=== PATIENT | female | born 1935 | race African-American/Black ===

== ENCOUNTER 2017-04-27 06:52 | Inpatient (IN) | payer MEDICARE ==
[2017-04-27] MEDS ORDERED: Albuterol/Ipratropium NEB.SOL* Albuterol 2.5 MG/Ipratropium 0.5 MG 3 ML INH ONE (07:30)
[2017-04-27 08:37] LABS: Red Blood Count 3.06 10^6/ul (4.0-5.4); White Blood Count 6.2 10^3/ul (3.5-10.8)
[2017-04-27 08:41] LABS: Hematocrit 22 % (35-47); Hemoglobin 6.7 g/dl (12.0-16.0); Mean Corpuscular HGB Conc 31 g/dl (31-36); Mean Corpuscular Hemoglobin 22 pg (27-31); Mean Corpuscular Volume 71 fL (80-97); Mean Platelet Volume 10 um3 (7.4-10.4); Red Cell Distribution Width 17 % (10.5-15)
[2017-04-27 08:42] LABS: Comments Flag Yes
[2017-04-27 08:44] LABS: Add Diff/Slide Review? Slide Review Added
[2017-04-27 08:56] LABS: Albumin 3.3 g/dL (3.2-5.2); BUN/Creatinine Ratio 14.2 (8-20); C Reactive Protein 29.13 mg/L (< 5.00); Calcium 9.1 mg/dL (8.6-10.3); EGFR African American 63.7 (>60); EGFR Non-African American 49.5 (>60); Globulin 3.4 g/dL (2-4); Total Bilirubin 0.5 mg/dL (0.2-1.0); Total Protein 6.7 g/dL (6.4-8.9)
[2017-04-27 08:57] LABS: Troponin I 0.47 ng/mL (<0.04)
--- NOTE | 2017-04-27 09:19 | RAD ---
HISTORY: Productive cough COMPARISONS: None VIEWS: 4: Frontal dual-energy and lateral views of the chest. FINDINGS: CARDIOMEDIASTINAL SILHOUETTE: The cardiomediastinal silhouette is normal. DARIEN: The darien are normal. PLEURA: The costophrenic angles are sharp. No pleural abnormalities are noted. LUNG PARENCHYMA: There is mild patchy linear opacification of the left lung base. ABDOMEN: The upper abdomen is clear. There is no subphrenic gas. BONES AND SOFT TISSUES: No bone or soft tissue abnormalities are noted. OTHER: None. IMPRESSION: PATCHY AIRSPACE DISEASE OF THE LEFT LUNG BASE. RECOMMEND FOLLOW-UP UNTIL RESOLUTION TO EXCLUDE UNDERLYING PULMONARY PARENCHYMAL PATHOLOGY.
[2017-04-27 09:25] LABS: Urine Bilirubin Negative (Negative); Urine Glucose Negative (Negative); Urine Nitrite Negative (Negative)
[2017-04-27 09:35] LABS: Microcytosis 1+; Polychromasia 1+
[2017-04-27] MEDS ORDERED: Pantoprazole IV* 40 MG IV ONE (10:20)
[2017-04-27] MEDS ORDERED: Levofloxacin 750 MG IVPREMIX(* 750 MG/150 ML BAG IVPB ONE (10:25)
[2017-04-27] MEDS: Pantoprazole IV* 80 MG in NS 0.9% 250 ML* 250 ML IV SCH ×2 (10:57→21:18)
--- NOTE | 2017-04-27 12:20 | ED ---
Amadeo Deal Angela, scribed for Nabeel Arias MD on 04/27/17 at 0722 . Respiratory - HPI Summary HPI Summary: This pt is a 81 y/o female accompanied by her presenting to [facility] [place]/o cough for a couple of days. Pt reports a burning sensation to her chest when coughing. Cough is aggravated when laying supine. She states she has a productive cough with a small amount of sputum. She denies fever, rhinorrhea, nausea, vomiting. Her cough is aggravated at night. PMHx includes coronary artery disease - angioplasty, HTN, rheumatoid arthritis. - History of Current Complaint Chief Complaint: EDUpperRespComplaint Stated Complaint: COUGH/CHEST BURNING Time Seen by Provider: 04/27/17 07:15 Hx Obtained From: Patient Onset/Duration: Lasting Days, Still Present Timing: Constant Pain Intensity: 9 Character: Wheezing, Cough (Productive) Sputum Amount: Small Aggravating Factor(s): Recumbent Position Associated Signs and Symptoms: Wheezing - Allergy/Home Medications Allergies/Adverse Reactions: Allergies Allergy/AdvReac Type Severity Reaction Status Date / Time Penicillin G Allergy Severe Hives Verified 04/27/17 06:57 Home Medications: Home Medications Aspirin EC Low Dose* [Ecotrin EC Low Dose 81 MG*] 81 mg PO DAILY 04/27/17 [ History Confirmed 04/27/17] Cyanocobalamin TAB* [Vitamin B12 TAB*] 500 mcg PO DAILY 04/27/17 [History Confirmed 04/27/17] Fexofenadine (NF) [Ely 180 (NF)] 180 mg PO DAILY 04/27/17 [History Confirmed 04/27/17] Multivitamins/Minerals TAB* [Theragran/minerals TAB*] 1 tab PO DAILY 04/27/17 [ History Confirmed 04/27/17] Nitroglycerin 0.2 MG/HR PATCH* [Nitroglycerin 5 MG PATCH*] 1 patch TRANSDERM DAILY 04/27/17 [History Confirmed 04/27/17] Nitroglycerin TAB 0.4 MG* 0.4 mg SL Q5M PRN 04/27/17 [History Confirmed 04/27/17 ] [place]-3 Fatty Acids (Nf) [Fish Oil (NF)] 1,000 mg PO DAILY 04/27/17 [History Confirmed 04/27/17] amLODIPine TAB* [Norvasc 5 mg TAB*] 10 mg PO DAILY 04/27/17 [History Confirmed 04/27/17] PMH/Surg Hx/FS Hx/Imm Hx Endocrine/Hematology History: Denies: Hx Diabetes Cardiovascular History: Reports: Hx Coronary Artery Disease - 192 ANGIOPLASTY, Hx Hypertension Musculoskeletal History: Reports: Hx Arthritis - KNEES, HANDS, LOW BACK, Hx Rheumatoid Arthritis Denies: Hx Osteoporosis Sensory History: Reports: Hx Contacts or Glasses - GLASSES Opthamlomology History: Reports: Hx Contacts or Glasses - GLASSES - Cancer History Hx Chemotherapy: No Hx Radiation Therapy: No - Surgical History Surgery Procedure, Year, and Place: 1991 CORONARY ANGIOPLASTY [place]. 1963 ABD TUMOR ? [place], [place]. 1971 HYSTERECTOMY [facility] Hx Anesthesia Reactions: No Infectious Disease History: No Infectious Disease History: Denies: Traveled Outside the [place] in Last 30 Days - Family History Known Family History: Positive: Diabetes - type 2, father, Other - Father: CA and asthma - Social History Alcohol Use: None Substance Use Type: Reports: None Smoking Status (MU): Former Smoker Amount Used/How Often: FEW CIGS. /WEEK MAYBE 10 YRS Have You Smoked in the Last Year: No Review of Systems Negative: Fever, Chills Negative: Other - rhinorrhea Positive: Other - chest burning secondary to cough Positive: Cough Negative: Vomiting, Nausea All Other Systems Reviewed And Are Negative: Yes Physical Exam - Summary Physical Exam Summary: VITAL SIGNS: Reviewed. GENERAL: Patient is a well-developed and nourished female who is lying comfortable in the stretcher. Patient is not in any acute respiratory distress. HEAD AND FACE: No signs of trauma. No ecchymosis, hematomas or skull depressions. No sinus tenderness. EYES: PERRLA, EOMI x 2, No injected conjunctiva, no nystagmus. EARS: Hearing grossly intact. Ear canals and tympanic membranes are within normal limits. MOUTH: Oropharynx within normal limits. NECK: Supple, trachea is midline, no adenopathy, no JVD, no carotid bruit, no c- spine tenderness, neck with full ROM. CHEST: Symmetric, no tenderness at palpation LUNGS: Pt has diffuse wheezing. CVS: Regular rate and rhythm, S1 and S2 present, no murmurs or gallops appreciated. ABDOMEN: Soft, non-tender. No signs of distention. No rebound no guarding, and no masses palpated. Bowel sounds are normal. 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 Pt has melena. EXTREMITIES: FROM in all major joints, no edema, no cyanosis or clubbing. NEURO: Alert and oriented x 3. No acute neurological deficits. Speech is normal and follows commands. SKIN: Dry and warm. Triage Information Reviewed: Yes Vital Signs On Initial Exam: Initial Vitals Temp Pulse Resp BP Pulse Ox 97.7 F 83 20 125/50 95 04/27/17 06:54 04/27/17 06:54 04/27/17 06:54 04/27/17 06:54 04/27/17 06:54 Vital Signs Reviewed: Yes - Phylicia Coma Scale Coma Scale Total: 15 Diagnostics - Vital Signs Vital Signs Temp Pulse Resp BP Pulse Ox 04/27/17 07:10 24 97 04/27/17 07:09 139/50 04/27/17 06:54 97.7 F 83 20 125/50 95 - Laboratory Lab Results: Lab Results 04/27/17 04/27/17 04/27/17 Range/Units 08:15 08:15 08:15 WBC 6.2 (3.5-10.8) 10^3/ul RBC 3.06 L (4.0-5.4) 10^6/ul Hgb 6.7 L (12.0-16.0) g/dl Hct 22 L (35-47) % MCV 71 L (80-97) fL MCH 22 L (27-31) pg MCHC 31 (31-36) g/dl RDW 17 H (10.5-15) % Plt Count 160 (150-450) 10^3/ul MPV 10 (7.4-10.4) um3 Neut % (Auto) 74.8 (38-83) % Lymph % (Auto) 10.9 L (25-47) % [place] % (Auto) 12.6 H (1-9) % Eos % (Auto) 0.3 (0-6) % Baso % (Auto) 1.4 (0-2) % Absolute Neuts (auto) 4.6 (1.5-7.7) 10^3/ul Absolute Lymphs (auto) 0.7 L (1.0-4.8) 10^3/ul Absolute Monos (auto) 0.8 (0-0.8) 10^3/ul Absolute Eos (auto) 0 (0-0.6) 10^3/ul Absolute Basos (auto) 0.1 (0-0.2) 10^3/ul Absolute Nucleated RBC 0 10^3/ul Nucleated RBC % 0 Normal RBC Morphology Not Reportable Polychromasia 1+ Microcytosis 1+ Sodium 140 (133-145) mmol/L Potassium 4.0 (3.5-5.0) mmol/L Chloride 107 (101-111) mmol/L Carbon Dioxide 26 (22-32) mmol/L Anion Gap 7 (2-11) mmol/L BUN 15 (6-24) mg/dL Creatinine 1.06 H (0.51-0.95) mg/dL Est GFR ( Amer) 63.7 (>60) Est GFR (Non-Af Amer) 49.5 (>60) BUN/Creatinine Ratio 14.2 (8-20) Glucose 119 H (70-100) mg/dL Calcium 9.1 (8.6-10.3) mg/dL Total Bilirubin 0.50 (0.2-1.0) mg/dL AST 25 (13-39) U/L ALT 14 (7-52) U/L Alkaline Phosphatase 64 (34-104) U/L Troponin I 0.47 H* (<0.04) ng/mL C-Reactive Protein 29.13 H (< 5.00) mg/L B-Natriuretic Peptide 538 H ( - 100) pg/mL Total Protein 6.7 (6.4-8.9) g/dL Albumin 3.3 (3.2-5.2) g/dL Globulin 3.4 (2-4) g/dL Albumin/Globulin Ratio 1.0 (1-3) Urine Color Urine Appearance Urine pH (5-9) Ur Specific [place] (1.010-1.030) Urine Protein (Negative) Urine Ketones (Negative) Urine Blood (Negative) Urine Nitrate (Negative) Urine Bilirubin (Negative) Urine Urobilinogen (Negative) Ur Leukocyte Esterase (Negative) Urine Glucose (Negative) Blood Type Antibody Screen Crossmatch 04/27/17 04/27/17 Range/Units 08:15 08:55 WBC (3.5-10.8) 10^3/ul RBC (4.0-5.4) 10^6/ul Hgb (12.0-16.0) g/dl Hct (35-47) % MCV (80-97) fL MCH (27-31) pg MCHC (31-36) g/dl RDW (10.5-15) % Plt Count (150-450) 10^3/ul MPV (7.4-10.4) um3 Neut % (Auto) (38-83) % Lymph % (Auto) (25-47) % [place] % (Auto) (1-9) % Eos % (Auto) (0-6) % Baso % (Auto) (0-2) % Absolute Neuts (auto) (1.5-7.7) 10^3/ul Absolute Lymphs (auto) (1.0-4.8) 10^3/ul Absolute Monos (auto) (0-0.8) 10^3/ul Absolute Eos (auto) (0-0.6) 10^3/ul Absolute Basos (auto) (0-0.2) 10^3/ul Absolute Nucleated RBC 10^3/ul Nucleated RBC % Normal RBC Morphology Polychromasia Microcytosis Sodium (133-145) mmol/L Potassium (3.5-5.0) mmol/L Chloride (101-111) mmol/L Carbon Dioxide (22-32) mmol/L Anion Gap (2-11) mmol/L BUN (6-24) mg/dL Creatinine (0.51-0.95) mg/dL Est GFR ( Amer) (>60) Est GFR (Non-Af Amer) (>60) BUN/Creatinine Ratio (8-20) Glucose (70-100) mg/dL Calcium (8.6-10.3) mg/dL Total Bilirubin (0.2-1.0) mg/dL AST (13-39) U/L ALT (7-52) U/L Alkaline Phosphatase (34-104) U/L Troponin I (<0.04) ng/mL C-Reactive Protein (< 5.00) mg/L B-Natriuretic Peptide ( - 100) pg/mL Total Protein (6.4-8.9) g/dL Albumin (3.2-5.2) g/dL Globulin (2-4) g/dL Albumin/Globulin Ratio (1-3) Urine Color Straw Urine Appearance Clear Urine pH 6.0 (5-9) Ur Specific [place] 1.005 L (1.010-1.030) Urine Protein Negative (Negative) Urine Ketones Negative (Negative) Urine Blood Negative (Negative) Urine Nitrate Negative (Negative) Urine Bilirubin Negative (Negative) Urine Urobilinogen Negative (Negative) Ur Leukocyte Esterase Negative (Negative) Urine Glucose Negative (Negative) Blood Type O Positive Antibody Screen Negative Crossmatch See Detail Result Diagrams: 04/27/17 08:15 04/27/17 08:15 Lab Statement: Any lab studies that have been ordered have been reviewed, and results considered in the medical decision making process. - Radiology Chest XR Xray Interpretation: Positive (See Comments) - IMPRESSION: Patchy airspace disease of the left lung base. Recommend follow-up until resolution to exclude underlying pulmonary parenchymal pathology. ED physician has reviewed this radiology report and agrees. Radiology Interpretation Completed By: Radiologist - EKG 0743 Cardiac Rate: NL - 70 bpm EKG Rhythm: Sinus Rhythm EKG Interpretation: No ST elevation. Normal axis Disposition - Course Assessment/Plan: This pt is a 81 y/o female accompanied by her presenting to [facility] c/o cough for a couple of days. Pt reports a burning sensation to her chest when coughing. Cough is aggravated when laying supine. She states she has a productive cough with a small amount of sputum. She denies fever, rhinorrhea, nausea, vomiting. Her cough is aggravated at night. PMHx includes coronary artery disease - angioplasty, HTN, rheumatoid arthritis. Test results without any significant abnormalities except for hemoglobin of 6.7, hematocrit of 22, MCV of 71, creatinine of 1.06, troponin of 0.47, BNP of 538. Urinalysis is negative for UTI. Chest XR shows a patchy airspace disease of the left lung base. Since the pt is having a productive cough, I will place pt in Levaquin to cover for pneumonia. I discussed the case with Dr. Romano who will consult with the pt for a GI bleed. Pt was positive for occult blood and rectal exam. I discussed the case with Dr. Martino who accepted the pt for admission. Pt is hemodynamically stable, alert and oriented x3. - Diagnoses Provider Diagnoses: GI bleed, Symptomatic anemia, increased troponin, rule out ACS - Physician Notifications Discussed Care Of Patient With: Aravind Romano Time Discussed With Above Provider: 10:01 Instructed by Provider To: Other - I discussed the pt's case with Dr. Romano, film producer. He will consult with the pt. [10:25] I discussed the case with Dr. Martino, who has accepted the pt for admission. - Critical Care Time Critical Care Time: 30-74 min Discharge - Discharge Plan Condition: Stable Disposition: ADMITTED TO [facility] The documentation as recorded by the Amadeo tomlinson Angela accurately reflects the service I personally performed and the decisions made by me, Nabeel Arias MD.
[2017-04-27] MEDS: NS 0.9% 1000 ML* 1,000 ML IV SCH (13:20)
[2017-04-27] MEDS: Albuterol/Ipratropium NEB.SOL* Albuterol 2.5 MG/Ipratropium 0.5 MG 3 ML INH SCH ×3 (13:47→23:20)
[2017-04-27] MEDS ORDERED: Albuterol/Ipratropium NEB.SOL* Albuterol 2.5 MG/Ipratropium 0.5 MG 3 ML INH SCH (14:00)
--- NOTE | 2017-04-27 14:09 | HP ---
CC: Dr. Maxwell; Dr. Brown * HISTORY AND PHYSICAL: DATE OF ADMISSION: 04/27/17 PRIMARY CARE PROVIDER: Dr. Maxwell. DELIVERY CONSULTANT: Dr. Brown. ATTENDING PHYSICIAN: Dr. Harriet Fang * (report dictated by Jenna Marie NP). CHIEF COMPLAINT: Shortness of breath. HISTORY OF PRESENT ILLNESS: This patient is an 81-year-old female with past medical history significant for coronary artery disease, severe aortic stenosis , hypertension, hyperlipidemia, as well as past history of gastric cancer, who presents to the emergency room today with complaint of shortness of breath. The patient states starting on this past Wednesday, she started to have significant difficulty breathing both at rest and walking around. The patient denies any fever, but reported dry cough. The patient also stated that she had chest pain that was worse when she lie flat. She said drink of water helped her feel better. She described the chest pain as a burning. In addition, she felt she had trouble breathing lying flat. The patient reports black coffee- ground stools for unknown length of time. The patient states she takes iron and has been on iron for quite some time and states that she knows her stools are darker with iron. Two years ago, the patient had a partial resection of her stomach for gastric cancer done up in [place]. The patient reports almost no appetite and denies any significant weight loss in the past month. In the emergency room, the patient was found to have a hemoglobin of 6.7 down from last hemoglobin in our system from October 2014 of 8.3. In addition, the patient had a troponin of 0.47 and a BNP of 538. Her stool occult blood was positive and certified medical coding specialist was contacted for consultation. The patient was given a bolus of IV Protonix and placed on a Protonix drip. In addition, 2 units of blood were ordered and the patient has already received one unit. The patient will be admitted to the telemetry floor with the diagnosis of upper GI bleed and indeterminate troponin. PAST MEDICAL HISTORY: Coronary artery disease; hypertension; hyperlipidemia; severe aortic stenosis, last echocardiogram 2015; gastric cancer, status post resection 2 years ago. MEDICATIONS: Home medications include: 1. Fish oil 1000 mg oral daily. 2. Vitamin B12 500 mcg daily. 3. Norvasc 10 mg oral daily. 4. Nitro 0.2 mg/hour patch one patch transdermal daily. 5. Multiple vitamin one tablet oral daily. 6. Iron unknown dose daily. 7. Ely 180 mg oral daily. 8. Aspirin 81 mg oral daily. 9. Hydrochlorothiazide 25 mg oral daily. 10. Vitamin D 1000 units oral daily. 11. Nitro 0.4 mg sublingual every 5 minutes as needed. 12. Pravachol 40 mg oral daily. ALLERGIES: PENICILLIN. FAMILY HISTORY: The patient does not remember how her parents . SOCIAL HISTORY: Tobacco: The patient states she quit both drinking and smoking back in 1974. The patient is retired from [employer] where she worked for 26 years. Her cousin, Bam Hartman will be the surrogate decision maker in the event the patient cannot make decisions for herself. REVIEW OF SYSTEMS: I performed a 14-point review of systems; all the pertinent positives and negatives are mentioned in the history of present illness. The remaining review of systems is negative. PHYSICAL EXAMINATION APPEARANCE: The patient is alert, pleasant and appeared to be in no apparent distress. VITAL SIGNS: Temperature 99.8, heart rate 82, respiratory rate 18, blood pressure 144/59, oxygen saturation 100% on 2 L nasal cannula. HEAD, EYES, EARS, NOSE AND THROAT: Normocephalic/atraumatic. Pupils are equal and reactive to light. Extraocular movements were intact. NECK: Neck was supple. There is no lymphadenopathy noted. RESPIRATORY: There was no accessory muscle use. Lungs were clear at the bases. There was expiratory wheezing throughout. CARDIAC: S1 and S2 were crisp. There was 3/6 systolic murmur heard at the right sternal border. Rate and rhythm were regular. ABDOMEN: Soft, nontender, nondistended. There are bowel sounds x4. MUSCULOSKELETAL: There is no clubbing or cyanosis noted. The patient exhibited equal strength in all extremities. NEURO: Cranial nerves II through XII were intact. The patient moves all extremities. Lower extremities were intact to light touch. PSYCH: The patient is alert and oriented x3. SKIN: There were no rashes or abnormalities seen. DIAGNOSTIC STUDIES/LAB DATA: Sodium 140, potassium 4, chloride 107, CO2 26, BUN 15, creatinine 1, glucose 119, calcium 9.1. Liver function tests within normal limits. Troponin 0.47. CRP 29.13. BNP 538. Albumin 3.3. White blood cell count 6.2, hemoglobin 6.7, hematocrit 22, MCV 71, platelet count 160. Urinalysis is negative. Chest x-ray shows patchy airspace disease of the left lower base. EKG shows sinus rhythm with a rate of 70. IMPRESSION: This is an 81-year-old female with past medical history significant for severe aortic stenosis and gastric cancer, status post partial resection, who presents to the emergency room with complaint of shortness of breath, found to have a suspected lower GI bleed and significant anemia as well as elevated troponin. ASSESSMENT AND PLAN: 1. Upper GI bleed. The patient was given a bolus of Protonix and started on a Protonix drip in the emergency room. She has already been transfused one unit of blood and we will transfuse an additional unit. After this, hemoglobin will be rechecked and trended q.6 hours. Consultation has been placed to Dr. Romano from Gastroenterology and plan is most likely for an upper endoscopy. Aspirin will be held and antihypertensives will be held. 2. Dyspnea at rest and on exertion. The patient's shortness of breath is likely from the symptomatic anemia from her upper GI bleed. It is also likely that because of her severe aortic stenosis, she has lack of forward flow, although she does not have crackles on exam. Additionally, she has some wheezing and may have a component of reactive airway disease. In addition to transfusing blood, we may give Lasix later on depending upon her fluid and respiratory status. She will have standing DuoNebs for the time being to help with her wheezing. 3. Elevated troponin. The patient's troponin is likely due to demand ischemia from anemia in the setting severe aortic stenosis. She does have a history of coronary artery disease, but has no changes on EKG. The troponin will be trended. I will not order an echocardiogram as she had one last year that showed severe aortic stenosis and according to the notes from her truck chauffeur at that time, she did not wish for any surgical intervention. I do not feel that an echocardiogram will change the care of the patient at this time. For her coronary artery disease, once the GI bleed has resolved and she can eat, we will restart her statin. For the time being, her aspirin will be held due to the GI bleed. Nitro patch will continue. Likely, the chest pain she is experiencing is from GI discomfort rather than cardiac. 4. Hypertension. Amlodipine will be held while she is receiving blood. 5. Hyperlipidemia. Statin will be held until she can take p.o. again. 6. Fluids, electrolytes, and nutrition. The patient is n.p.o. with IV fluids until seen and evaluated by the certified medical coding specialist. 7. DVT prophylaxis. Chemical prophylaxis is contraindicated due to GI bleed. The patient will have SCDs. 8. Code status is full. TIME SPENT: Time for this admission was 60 minutes, and 35 minutes was spent with the patient discussing medications, past medical history, and events leading up to her arrival in the emergency room. Reviewed by JENNA MARIE NP 04/27/2017 2100 [id number] #: [id number] LIZ
[2017-04-27 18:13] LABS: Hematocrit 29 % (35-47); Hemoglobin 9.2 g/dl (12.0-16.0)
[2017-04-27 18:20] LABS: Comments Flag Yes
--- NOTE | 2017-04-27 20:49 | CONS ---
GASTROENTEROLOGY CONSULT: DATE: 04/27/17 CONSULTING PHYSICIANS: Bonifacio Maxwell MD, Harriet Fang MD. 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 pylori positive at that time). HISTORY: This 81-year-old woman had anemia. An upper endoscopy by Dr. Rodriguez showed an antral cancer. She had surgery in [place] in January 2015. It is not clear whether she ever had the H. pylori eradicated. Since then, she has not had any upper endoscopy. She takes baby aspirin but no NSAIDs, although 3 years ago when she had breast surgery, she was listed as being on etodolac 400 mg twice a day. In the last 2 years, she has been on iron and says her stools are black on account of that going once a day without the need for any laxatives. She denies any tarry stool. History that had been passed on from ER staff or others had been variable on this point. She has had a colonoscopy in the remote past and that report is not available. Dr. Maxwell was called and the patient was seen in mid December, at which time her hemoglobin was 11.6 and MCV 78. She had received iron infusions twice a year ago. She was seen at [facility] on 04/08/17 and the only plan at that time was to arrange for a followup CT scan. That message is per report, as the actual consult is not available. PAST MEDICAL HISTORY: 1. Substantial obesity. 2. Aortic stenosis - she has expressed the wish not to have surgery. 3. Coronary disease - angioplasty in 1991 at [facility]. 4. Osteoarthritis. 5. Hypertension. 6. Total abdominal hysterectomy in 1971. 7. Incidental appendectomy. 8. Breast lumpectomy, November 2003. SOCIAL HISTORY: She lives alone. She is . 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 REVIEW OF SYSTEMS: No history of hepatitis, jaundice, gallstones, pancreatitis , alcohol abuse, seizures, CVA, fainting. She is followed by Dr. Brown for . No history of recent fracture. No history of psoriasis or other other chronic dermatologic problems. EXAM: She is an elderly woman, substantially overweight, wearing a wig, in no overt distress. She is a little bit short of breath, lying at 30 degrees. HEENT exam shows no icterus. She has no adenopathy. There is a coarse aortic stenotic murmur. Her abdomen shows an upper midline scar and a lower midline separate scar that is remote. Bowel sounds are normal. The abdomen is soft and obesity limits it. Rectal deferred. Extremities show no edema. Neurological is nonfocal with normal cranial nerves and movement of all 4 extremities. LABS: At presentation, hemoglobin 6.7, hematocrit 22, MCV 71, platelets 160, 000. IMPRESSION: This 81-year-old woman 2 years out from antral resection and on chronic iron replacement presents with severe iron-deficiency anemia. Whether she could have some occult unrevealed NSAID use and have an upper GI source versus AVMs related to her aortic stenosis is unclear. Upper endoscopy will commence first. [id number]/CPS #: [id number] LIZ
[2017-04-27 21:32] LABS: Comments Flag Yes; Hematocrit 29 % (35-47); Hemoglobin 8.9 g/dl (12.0-16.0)
[2017-04-28] MEDS: Albuterol/Ipratropium NEB.SOL* Albuterol 2.5 MG/Ipratropium 0.5 MG 3 ML INH SCH ×6 (03:43→23:33)
[2017-04-28 05:25] LABS: Calcium 8.7 mg/dL (8.6-10.3); EGFR African American 90.7 (>60); EGFR Non-African American 70.5 (>60); Potassium 3.5 mmol/L (3.5-5.0)
[2017-04-28 05:28] LABS: Hematocrit 28 % (35-47); Hemoglobin 8.6 g/dl (12.0-16.0); Mean Corpuscular HGB Conc 31 g/dl (31-36); Mean Corpuscular Hemoglobin 23 pg (27-31); Mean Platelet Volume 10 um3 (7.4-10.4); Red Blood Count 3.79 10^6/ul (4.0-5.4); Red Cell Distribution Width 20 % (10.5-15); White Blood Count 10.8 10^3/ul (3.5-10.8)
[2017-04-28 05:29] LABS: Comments Flag Yes; Mean Corpuscular Volume 74 fL (80-97)
[2017-04-28] MEDS: Pantoprazole IV* 80 MG in NS 0.9% 250 ML* 250 ML IV SCH (07:47)
[2017-04-28] MEDS ORDERED: Pantoprazole IV* 80 MG in NS 0.9% 250 ML* 250 ML IV SCH (08:00)
[2017-04-28] MEDS: Nitroglycerin 0.2 MG/HR PATCH* (5 MG) TRANSDERM SCH (08:10)
[2017-04-28] MEDS: NS 0.9% 1000 ML* 1,000 ML IV SCH (08:10)
[2017-04-28] MEDS ORDERED: Furosemide IV* 10 MG/ML 2 ML VIAL (20 MG) IV ONE (08:45)
[2017-04-28] MEDS: KCL 10 MEQ/50 ML IVPREMIX* 10 MEQ/50 ML BAG IV SCH ×3 (09:16→13:49)
--- NOTE | 2017-04-28 10:18 | RAD ---
HISTORY: Hypoxia COMPARISONS: April 27, 2017 VIEWS: 1: frontal portable view of the chest at 9:55 AM FINDINGS: LINES AND TUBES: None. CARDIOMEDIASTINAL SILHOUETTE: The cardiomediastinal silhouette is normal for portable technique. PLEURA: The costophrenic angles are sharp. No pleural abnormalities are noted. LUNG PARENCHYMA: There has been progressive alveolar opacification of the right mid and lower lung field and left lower lung field. ABDOMEN: The upper abdomen is clear. There is no subphrenic gas. BONES AND SOFT TISSUES: Degenerative changes are noted of the spine IMPRESSION: PROGRESSIVE MULTIFOCAL CONSOLIDATION OF THE LUNGS BILATERALLY, GREATER ON THE RIGHT THAN ON THE LEFT
--- NOTE | 2017-04-28 11:47 | PN ---
Subjective Date of Service: 04/28/17 Interval History: Patient seen and examined at bedside. Patient states she feels better but her oxygen levels have increased. Work of breathing looks increased. She denies any chest pain and was able to sleep last night. Able to ambulate to with dyspnea. No dark stools since admission. Family History: Unchanged from Admission Social History: Unchanged from Admission Past Medical History: Unchanged from Admission Objective Active Medications: Albuterol/Ipratropium (Duoneb (Albuterol 2.5 Mg/Ipratropium 0.5 Mg)) 1 neb INH [id number] AWAKE [facility] Pantoprazole Sodium 80 mg/ (Sodium Chloride) 250 mls @ 25 mls/hr IV Q10H [facility] Potassium Chloride (Potassium Chloride 10 Meq/50 Ml Ivpremix*) 10 meq in 50 mls @ 50 mls/hr IV Q1H [facility] Levofloxacin/Dextrose (Levaquin 750 Mg Ivpremix(*)) 750 mg in 150 mls @ 100 mls /hr IVPB Q24H [facility] Nitroglycerin (Nitroglycerin 5 Mg Patch*) 1 patch TRANSDERM DAILY [facility] Vital Signs Temp Pulse Resp BP Pulse Ox 99.4 F 87 16 148/60 98 04/28/17 08:09 04/28/17 11:47 04/28/17 11:47 04/28/17 08:09 04/28/17 11:47 Oxygen Devices in Use Now: Nasal Cannula Appearance: Sitting up in bed, NAD Eyes: No Scleral Icterus, PERRLA Ears/Nose/Mouth/Throat: NL Teeth, Lips, Gums, Mucous Membranes Moist Neck: NL Appearance and Movements; NL JVP Respiratory: Symmetrical Chest Expansion and Respiratory Effort, - - crackles at bases anbd coarse bilaterally. Abdominal: NL Sounds; No Tenderness; No Distention Extremities: No Edema Skin: No Rash or Ulcers Neurological: Alert and Oriented x 3, NL Muscle Strength and Tone Lines/Tubes/Other Access: Clean, Dry and Intact Peripheral IV Nutrition: Taking PO's Result Diagrams: 04/28/17 04:57 04/28/17 04:57 Additional Lab and Data: . Assess/Plan/Problems-Billing Patient is a 81 y/o F w/ PMH significant for severe aortic stenosis, CAD, HTN, HLD, hx of gastric cancer who presented to the ED on 04/27/17 w/ the c/o of worsening SOB found to have symptomatic anemia with an elevated troponin. - Patient Problems (1) Upper GI bleed Comment: Appreciate GI input. Plan for EGD this AM. Hb stable which suggests this is quite chronic. Continue Protonix for now. Recheck H/H after EGD and in AM. (2) Symptomatic anemia Comment: Received 2 units of PRBCs and HB up to 8.6. Possible she woul dbenefit from a Hb in the 9 range. Will give Lasix for now and consider blood based on Hb later today and tomorrow. (3) Pneumonia Comment: CXR this AM shows now R sided consolidation. Sputum shows normal emily. Received dose of Levaquin in ED yesterday. Will start Levaquin now. Send urine for S. pneumo An and Legionella. (4) Elevated troponin Comment: Most likely secondary to demand ischemia from anemia in the setting of , but could also be from pneumonia as now CXR shows right sided consolidation. Although patient has clearly expressed desire for no surgical intervention will check echo given worsening dyspnea. (5) CHF due to valvular disease Comment: Patient has known severe aortic stenosis and does not want surgery. Received IVF and 2 units of blood overnight. Will check echo today given worsening dyspnea to check valve but also look for any other wall motion abnormalities given SOB. Diurese carefully. Consider adding a beta chris to increase preload. (6) HTN (hypertension) Comment: Hold CCB for now. (7) HLD (hyperlipidemia) Comment: Restart statin after EGD (8) DVT prophylaxis Comment: SCDs (9) Full code status Status and Disposition: Inpatient for upper GI bleed and now CHF w/ PNA. VNS set up for discharge when medically stable.
[2017-04-28] MEDS: Levofloxacin 750 MG IVPREMIX(* 750 MG/150 ML BAG IVPB SCH (12:14)
[2017-04-28 12:36] LABS: Hematocrit 32 % (35-47); Hemoglobin 9.7 g/dl (12.0-16.0)
[2017-04-28 12:42] LABS: Comments Flag Yes
--- NOTE | 2017-04-28 13:51 | ECHO ---
Patient: KVNG ALVAREZ [facility] Rec#: [id number] : 1935 Date: 04/28/2017 Age: 81y Height: 157.48 cm / 62.0 in Weight: 76.66 kg / 169.0 lbs Sex: F BSA: 1.78 Room#: 431 Admit Date#: 04/27/2017 Type: Inpatient Referring: Jenna Marie NP Reading: Anneliese Palma MD Stamping Machine Operator: Dalia Salgado,THOMASCS,RDMS CC: Bonifacio Maxwell MD Transthoracic Echocardiogram Indication: AOV disorder, elevated TROP BP: 148/60 HR: 74 Rhythm: NSR Findings History: Severe , CAD, HTN, HLD, gastric cancer Technical Comments: The study quality is good. Completed 1015 Left Ventricle: The left ventricular chamber size is normal. Moderate concentric left ventricular hypertrophy is observed. Global left ventricular wall motion and contractility are within normal limits. There is normal left ventricular systolic function. The estimated ejection fraction is 60-65%. Abnormal left ventricular diastolic filling is observed, consistent with impaired relaxation. Left Atrium: The left atrium is moderate to severely dilated. Right Ventricle: The right ventricle wall thickness is mildly increased. The right ventricular global systolic function is normal. Right Atrium: The right atrial cavity size is normal. Aortic Valve: The aortic valve leaflets are severely thickened with reduced systolic excursion. There is a trace of aortic regurgitation. There is severe aortic stenosis. The mean gradient of the aortic valve is 66 mmHg. The aortic valve area, by peak velocities, is calculated at 0.8 cm2. The highest aortic valve velocity was obtained with the standard probe from the A5C view. Mitral Valve: Moderate mitral annular calcification present. The mitral valve leaflets are mildly thickened. Mitral valve leaflet mobility is moderately restricted. There is moderate mitral regurgitation. There is mild mitral stenosis. Tricuspid Valve: The tricuspid valve leaflets are normal. There is trace tricuspid regurgitation. Pulmonic Valve: The pulmonic valve appears normal. There is a trace pulmonic regurgitation. Pericardium: There is no significant pericardial effusion. A left pleural effusion is present. Aorta: The aortic root appears normal. The aortic arch is not well visualized. Pulmonary Artery: The main pulmonary artery appears normal. Venous: The inferior vena cava appears normal in size. There is a greater than 50% respiratory change in the inferior vena cava dimension. Conclusions Moderate concentric left ventricular hypertrophy is observed. Global left ventricular wall motion and contractility are within normal limits. The estimated ejection fraction is 60-65%. Abnormal left ventricular diastolic filling is observed, consistent with impaired relaxation. The right ventricle wall thickness is mildly increased, systolic function is normal. The aortic valve leaflets are severely thickened with reduced systolic excursion. There is a trace of aortic regurgitation. There is severe aortic stenosis: mean gradient is 66 mmHg CHARISSE is 0.8 cm2, DI is 0.26 (VTI and Vmax). MAC, mitral valve sclerosis with moderate mitral regurgitation and mild mitral stenosis. There is trace tricuspid regurgitation. Compared with prior echo of 04/23/16, mean gradient across the AV was 44 mmHg indicating a further progression in , the degree of MR has increased, MS is stable. Measurements Name Value Normal Range RVIDd (AP) 2D 2.7 cm (0.9 - 2.6) RVDdMajor (2D) 2.6 cm (2.2 - 4.4) RAd ISD 4CH 4.6 cm (3.4 - 4.9) RA (A4C)W 3.9 cm (2.9 - 4.6) IVSd (2D) 1.3 cm (0.6 - 1) LVPWd (2D) 1.4 cm (0.6 - 1) LVIDd (2D) 4.3 cm (3.6 - 5.4) LVIDs (2D) 3.2 cm - LV FS (2D) 26 % (25 - 45) Aortic Annulus 2 cm (1.4 - 2.6) Ao root diameter (2D) 2.6 cm (2.1 - 3.5) Ascending Ao 2.7 cm (2.1 - 3.4) LA dimension (AP) 2D 4.4 cm (2.3 - 3.8) LAd ISD 4CH 5.6 cm (2.9 - 5.3) LA ISD 4CH W 4.5 cm (2.5 - 4.5) Name Value Normal Range LA ESV SP 4CH (A/L) 91.5 ml - LA ESV SP 2CH (A/L) 82.96 ml - LA ESV BP (A/L) 87.23 ml - LA ESV BP (A/L) index 49 ml/m2 - LA ESV SP 4CH (MOD) 83.23 ml - LA ESV SP 2CH (MOD) 76.4 ml - Name Value Normal Range MV E-wave Vmax 1.5 m/sec - MV deceleration time 200 msec - MV A-wave Vmax 1.7 m/sec - MV E:A ratio 0.9 ratio - P. vein S-wave Vmax 1 m/sec - P. vein D-wave Vmax 0.5 m/sec - P. vein S:D Vmax ratio 1.9 ratio - P. vein A-wave duration 100 msec - LV septal e' Vmax 0.05 m/sec - LV lateral e' Vmax 0.08 m/sec - LV E:e' septal ratio 30 ratio - LV E:e' lateral ratio 18 ratio - Name Value Normal Range AV Vmax 4.9 m/sec - AV VTI 123.5 cm - AV peak gradient 96 mmHg - AV mean gradient 66 mmHg - LVOT diameter 2 cm - LVOT Vmax 1.3 m/sec - LVOT VTI 32 cm - LVOT peak gradient 7 mmHg - LVOT mean gradient 3.3 mmHg - DOI (VTI) 0.3 ratio - SV LVOT 96.29 ml - CHARISSE (continuity Vmax) 0.8 cm2 - CHARISSE (continuity VTI) 0.8 cm2 - Name Value Normal Range MV Vmax 2 m/sec - MV VTI 49.2 cm - MV peak gradient 16 mmHg - MV mean gradient 5 mmHg - MV PHT 64 msec - MR Vmax 6.9 m/sec - MR VTI 205 cm - MR volume (PISA) 23 ml - MR flow (PISA) 76 ml/sec - MR ERO 11 cm2 - MR PISA radius 0.6 cm - MR alias Vmax 34 cm/sec - MVA (PHT) 3.4 cm2 - MVA (continuity VTI) 2 cm2 - Name Value Normal Range RAP 8 mmHg - IVC diameter 2 cm - Name Value Normal Range PV Vmax 1.1 m/sec - PV peak gradient 5 mmHg -
[2017-04-28] MEDS ORDERED: amLODIPine TAB* 5 MG PO SCH (16:00)
[2017-04-28] MEDS: amLODIPine TAB* 5 MG PO SCH (16:37)
--- NOTE | 2017-04-28 18:06 | PN ---
Progress Note - Progress Note Date of Service: 04/28/17 - Gastroenterology Note: Patient seen and examined this morning and again in the afternoon. Had increased dyspnea this morning after 2 units for prbcs overnight. Discussed with primary team and was given lasix and some improvement in symptoms but this afternoon patient was still dyspneic. CXR revealed possible B/L infiltrates. No abdominal pain. No nausea/emesis. +appetite. No melena/rectal bleeding. Coughing clear thick sputum this morning. Vital Signs: Temp Pulse Resp BP Pulse Ox 98.6 F 82 16 140/62 100 04/28/17 15:49 04/28/17 15:49 04/28/17 15:49 04/28/17 15:49 04/28/17 15:49 PHYSICAL EXAMINATION: GENERAL: AAOx3, slightly dyspneic in bed. HEENT: anicteric sclera B/L, dry MM. CV: RRR. PULM: Coarse B/L, crackles in lower bases, mild expiratory wheezing in RUL. EXTREMITIES: No edema. NEURO: Grossly intact. Laboratory Results - last 24 hr 04/27/17 04/27/17 04/27/17 17:39 17:39 17:39 WBC RBC Hgb 9.2 L Hct 29 L MCV MCH MCHC RDW Plt Count MPV Neut % (Auto) Lymph % (Auto) Bleck[place] % (Auto) Eos % (Auto) Baso % (Auto) Absolute Neuts (auto) Absolute Lymphs (auto) Absolute Monos (auto) Absolute Eos (auto) Absolute Basos (auto) Absolute Nucleated RBC Nucleated RBC % INR (Anticoag Therapy) 1.06 Sodium Potassium Chloride Carbon Dioxide Anion Gap BUN Creatinine Est GFR ( Amer) Est GFR (Non-Af Amer) BUN/Creatinine Ratio Glucose Calcium Troponin I 0.58 H* B-Natriuretic Peptide 04/27/17 04/27/17 04/28/17 21:03 21:12 04:57 WBC 10.8 RBC 3.79 L Hgb 8.9 L 8.6 L Hct 29 L 28 L MCV 74 L MCH 23 L MCHC 31 RDW 20 H Plt Count 156 MPV 10 Neut % (Auto) 81.8 Lymph % (Auto) 6.3 L Bleckley % (Auto) 11.5 H Eos % (Auto) 0 Baso % (Auto) 0.4 Absolute Neuts (auto) 8.8 H Absolute Lymphs (auto) 0.7 L Absolute Monos (auto) 1.2 H Absolute Eos (auto) 0 Absolute Basos (auto) 0 Absolute Nucleated RBC 0.01 Nucleated RBC % 0.1 INR (Anticoag Therapy) Sodium Potassium Chloride Carbon Dioxide Anion Gap BUN Creatinine Est GFR ( Amer) Est GFR (Non-Af Amer) BUN/Creatinine Ratio Glucose Calcium Troponin I 0.50 H* B-Natriuretic Peptide 04/28/17 04/28/17 04/28/17 04:57 04:57 12:05 WBC RBC Hgb 9.7 L Hct 32 L MCV MCH MCHC RDW Plt Count MPV Neut % (Auto) Lymph % (Auto) Bleck[place] % (Auto) Eos % (Auto) Baso % (Auto) Absolute Neuts (auto) Absolute Lymphs (auto) Absolute Monos (auto) Absolute Eos (auto) Absolute Basos (auto) Absolute Nucleated RBC Nucleated RBC % INR (Anticoag Therapy) Sodium 137 Potassium 3.5 Chloride 107 Carbon Dioxide 25 Anion Gap 5 BUN 7 Creatinine 0.78 Est GFR ( Amer) 90.7 Est GFR (Non-Af Amer) 70.5 BUN/Creatinine Ratio 9.0 Glucose 150 H Calcium 8.7 Troponin I B-Natriuretic Peptide 1326 H A/P 81 yo female with severe and antral adenocarcinoma who presented with acute anemia and BLAKE. Patient's Hgb was 6.7 on admission. She is s/p 2 units of prbcs and hgb is 9.7 now. No episodes of rectal bleeding/melena. Respiratory status worsened overnight. CXR was done this AM revealed right LL infiltrate which may be secondary to CHF from prbcs vs pneumonia. A dose of lasix was given with some improvement in symptoms but still remains dyspneic. EGD with MAC for evaluation of anemia was placed on hold today due to respiratory status. Abx were started as well for possible pneumonia. 1. Acute blood loss anemia ~Hgb from 6.7 --> 9.7 s/p 2 units of prbcs. ~No signs of active GI bleeding. ~EGD on hold until respiratory status has improved. ~PPI BID for now. ~NPO after midnight in case EGD can be done tomorrow if respiratory status has improved. ~If EGD is negative, will need a colonoscopy for further evaluation. 2. CHF vs Pneumonia ~Levaquin started today for possible pneumonia. ~Gentle diuresis due to severe per primary team. 3. History of antral resection due to adenocarcinoma ~Unclear whether H.pylori was checked in the past. 4. Elevated troponins ~Likely from demand ischemia ~Echo today revealed no acute issues. 5. Severe ~Patient follows with cardiology and under conservative management. Discussed with Jenna Marie. Please call us with any further questions or concerns. Will follow closely. -Ellyn Ocasio D.O.
[2017-04-28] MEDS: guaiFENesin ER TAB 600 MG PO SCH (20:16)
[2017-04-28] MEDS: Pantoprazole IV* 40 MG IV SCH (20:17)
[2017-04-28] MEDS: Nitro Patch/OINT Remove PATCH OFF SCH (20:20)
[2017-04-29 07:07] LABS: BUN/Creatinine Ratio 8.5 (8-20); EGFR African American 85.6 (>60); EGFR Non-African American 66.6 (>60); Potassium 3.6 mmol/L (3.5-5.0)
[2017-04-29 07:15] LABS: Hematocrit 26 % (35-47); Hemoglobin 8.3 g/dl (12.0-16.0); Mean Corpuscular HGB Conc 32 g/dl (31-36); Mean Corpuscular Hemoglobin 23 pg (27-31); Mean Corpuscular Volume 74 fL (80-97); Mean Platelet Volume 10 um3 (7.4-10.4); Red Blood Count 3.53 10^6/ul (4.0-5.4); Red Cell Distribution Width 20 % (10.5-15); White Blood Count 8.9 10^3/ul (3.5-10.8)
[2017-04-29 07:17] LABS: Add Diff/Slide Review? Manual Diff Added; Comments Flag Yes
[2017-04-29] MEDS: Albuterol/Ipratropium NEB.SOL* Albuterol 2.5 MG/Ipratropium 0.5 MG 3 ML INH SCH ×6 (08:07→23:19)
[2017-04-29] MEDS: guaiFENesin ER TAB 600 MG PO SCH ×2 (08:35→21:22)
[2017-04-29] MEDS: CMC: Pravastatin (NF) 20 MG TAB PO SCH (08:35)
[2017-04-29] MEDS: amLODIPine TAB* 5 MG PO SCH (08:35)
[2017-04-29] MEDS: Pantoprazole IV* 40 MG IV SCH ×2 (08:54→21:29)
[2017-04-29] MEDS: Nitroglycerin 0.2 MG/HR PATCH* (5 MG) TRANSDERM SCH (08:57)
[2017-04-29 09:15] LABS: Eosinophils % 2 % (0-6); Hypochromasia 1+; Microcytosis 1+; Neutrophil % 83 % (38-83); Polychromasia 1+
[2017-04-29] MEDS: Levofloxacin 750 MG IVPREMIX(* 750 MG/150 ML BAG IVPB SCH (11:19)
[2017-04-29] MEDS ORDERED: Midazolam* 1 MG/ML 2 ML VIAL (2 MG) ONE (13:20)
[2017-04-29] MEDS ORDERED: KETAMINE HCL* 50 MG/ML 10 ML VIAL ONE (13:20)
[2017-04-29] MEDS ORDERED: fentaNYL* 50 MCG/ML 2 ML VIAL (100 MCG VIAL) ONE (13:20)
--- NOTE | 2017-04-29 14:56 | PN ---
Subjective Date of Service: 04/29/17 Interval History: Patient seen and examined at bedside. Denies lightheadedness, dizziness, fever, chills, shortness of breath, chest discomfort, N/V/D. Denies bloody stools or vomit. Tele: Sinus rhythm, rate 60-90's Family History: Unchanged from Admission Social History: Unchanged from Admission Past Medical History: Unchanged from Admission Objective Active Medications: Albuterol/Ipratropium (Duoneb (Albuterol 2.5 Mg/Ipratropium 0.5 Mg)) 1 neb INH [id number] AWAKE [facility] Amlodipine Besylate (Norvasc Tab*) 5 mg PO DAILY [facility] Guaifenesin (Mucinex*) 600 mg PO BID [facility] Levofloxacin/Dextrose (Levaquin 750 Mg Ivpremix(*)) 750 mg in 150 mls @ 100 mls /hr IVPB Q24H [facility] Nitroglycerin (Nitroglycerin 5 Mg Patch*) 1 patch TRANSDERM DAILY [facility] Pantoprazole Sodium (Protonix Iv*) 40 mg IV BID [facility] Pharmacy Profile Note (Nitro Patch/Oint Remove*) 1 note PATCH OFF 1999 [facility] Pravastatin Sodium (Pravachol (Nf)) 40 mg PO DAILY [facility] Vital Signs 04/28/17 04/28/17 04/28/17 15:10 15:49 19:55 Temperature 98.6 F 98.5 F Pulse Rate 75 82 76 Respiratory 16 16 20 Rate Blood Pressure 140/62 118/44 (mmHg) O2 Sat by Pulse 99 100 99 Oximetry 04/28/17 04/28/17 04/28/17 20:00 23:17 23:32 Temperature 98.4 F Pulse Rate 82 76 76 Respiratory 20 16 24 Rate Blood Pressure 123/46 (mmHg) O2 Sat by Pulse 95 98 96 Oximetry 04/28/17 04/29/17 04/29/17 23:55 03:39 07:19 Temperature 99.6 F 98.3 F Pulse Rate 73 73 Respiratory 20 20 Rate Blood Pressure 119/48 137/41 (mmHg) O2 Sat by Pulse 96 100 100 Oximetry 04/29/17 04/29/17 04/29/17 08:00 08:10 11:22 Temperature 98.8 F Pulse Rate 66 73 Respiratory 18 18 18 Rate Blood Pressure 125/92 (mmHg) O2 Sat by Pulse 99 98 Oximetry 04/29/17 04/29/17 04/29/17 13:40 13:45 14:00 Temperature 99.3 F Pulse Rate 77 78 76 Respiratory 16 22 22 Rate Blood Pressure 143/57 154/59 147/55 (mmHg) O2 Sat by Pulse 95 94 97 Oximetry Oxygen Devices in Use Now: None Appearance: NAD, sitting on the side of the bed Ears/Nose/Mouth/Throat: Mucous Membranes Moist Respiratory: Symmetrical Chest Expansion and Respiratory Effort, Clear to Auscultation Cardiovascular: NL Sounds; No Murmurs; No JVD, RRR Abdominal: NL Sounds; No Tenderness; No Distention Extremities: No Edema Skin: No Rash or Ulcers Neurological: Alert and Oriented x 3, NL Muscle Strength and Tone Lines/Tubes/Other Access: Clean, Dry and Intact Peripheral IV - site benign Nutrition: Taking PO's Result Diagrams: 04/29/17 05:00 04/29/17 05:00 Microbiology and Other Data: Microbiology 04/28/17 23:50 Legionella Urinary Antigen - Final Urine Negative Legionella Streptococcus pneumoniae Ag Screen - Final Negative S. pneumo Antigen Assess/Plan/Problems-Billing Ms. Murcia is a 81 y/o F w/ PMH significant for severe aortic stenosis, CAD, HTN, HLD, hx of gastric cancer who presented to the ED on 04/27/17 w/ the c/o of worsening SOB found to have symptomatic anemia with an elevated troponin. - Patient Problems (1) Upper GI bleed Code(s): K92.2 - GASTROINTESTINAL HEMORRHAGE, UNSPECIFIED SNOMED Code(s): 55283781 Comment: - Appreciate GI input. S/P EGD this AM. - Hb stable which suggests this is chronic. - Continue Protonix for now. Recheck H/H in AM. (2) Symptomatic anemia Code(s): D64.9 - ANEMIA, UNSPECIFIED SNOMED Code(s): 334318068 Comment: - Received 2 units of PRBCs and HB improved. (3) CHF due to valvular disease Code(s): I50.9 - HEART FAILURE, UNSPECIFIED; I38 - ENDOCARDITIS, VALVE UNSPECIFIED SNOMED Code(s): 119839237 Comment: - Patient has known severe aortic stenosis and may be interested in TAVR. - Diurese carefully, received lasix yesterday. - Echo - abnormal LV diastolic filling, severe aortic stenosis. EF 60-65% - Consider adding a beta chris to increase preload. (4) Elevated troponin Code(s): R74.8 - ABNORMAL LEVELS OF OTHER SERUM ENZYMES SNOMED Code(s): 003253323 Comment: - Most likely secondary to demand ischemia from anemia in the setting of , but could also be from pneumonia as now CXR shows right sided consolidation. (5) Pneumonia Code(s): J18.9 - PNEUMONIA, UNSPECIFIED ORGANISM SNOMED Code(s): 379368957 Comment: - CXR shows now R sided consolidation. - Sputum shows normal emily. - Urine for S. pneumo An and Legionella negative. - Continue Levaquin now. (6) HLD (hyperlipidemia) Code(s): E78.5 - HYPERLIPIDEMIA, UNSPECIFIED SNOMED Code(s): 98595456 Comment: - Continue statin (7) HTN (hypertension) Code(s): I10 - ESSENTIAL (PRIMARY) HYPERTENSION SNOMED Code(s): 43197144 Comment: - Continue amlodipine. (8) DVT prophylaxis Code(s): XRE9650 - SNOMED Code(s): 502372376 Comment: - No chemical DVT prohylaxis in the setting of a GI bleed - SCDs (9) Full code status Code(s): Z78.9 - OTHER SPECIFIED HEALTH STATUS SNOMED Code(s): 400483910 Status and Disposition: Inpatient for upper GI bleed and now CHF w/ PNA. VNS set up for discharge when medically stable. Possible discharge to home in the AM.
[2017-04-29] MEDS: Nitro Patch/OINT Remove PATCH OFF SCH (21:30)
--- NOTE | 2017-04-30 00:37 | PRO ---
CC: Dr. Maxwell * DATE OF PROCEDURE: 04/29/17 - ROOM #431 PROCEDURE: EGD. INDICATION: Anemia. REFERRING PHYSICIAN: Dr. Maxwell. MEDICATIONS: Per the anesthesia staff. DESCRIPTION OF PROCEDURE: After the EGD procedure, including the risks, benefits, and alternatives, not limited to perforation, surgery and/or were explained to the patient, written consent was then obtained. IV medication was given and a bite-block was placed between the teeth. The patient was scoped in the operating room and an Olympus pediatric gastroscope was then inserted into the patient's mouth, advanced down the esophagus, into the stomach, and into the distal duodenum. In the esophagus, at the GE junction , the Z-line was intact. No erosive esophagitis, stricture, or ring was seen. The scope was advanced through the GE into the body of the stomach. Retroflex view was unremarkable. Forward views did reveal previous antrectomy. The anastomosis was thoroughly evaluated, no ulcers were seen. No masses were seen. The scope was advanced down the efferent and afferent limb, no abnormalities were seen. The scope was then withdrawn from the patient. She tolerated the procedure well and was returned to the recovery room in stable condition. IMPRESSION: 1. Complete upper endoscopy into the . 2. Normal upper endoscopy. 3. No etiology was seen for her anemia. She is high risk for any endoscopic procedures. She has severe aortic stenosis and pretty severe pulmonary disease. It was difficult to maintain her sats in the low 80 range for her endoscopy. I think trying to perform a colonoscopy is going to be very high risk. This was conveyed to the patient. [id number]/[facility] #: [id number] [facility] HEALTHBrianna
[2017-04-30] MEDS: Albuterol/Ipratropium NEB.SOL* Albuterol 2.5 MG/Ipratropium 0.5 MG 3 ML INH SCH ×4 (03:46→15:46)
[2017-04-30 06:58] LABS: Hematocrit 27 % (35-47); Hemoglobin 8.4 g/dl (12.0-16.0); Mean Corpuscular HGB Conc 32 g/dl (31-36); Mean Corpuscular Hemoglobin 23 pg (27-31); Mean Corpuscular Volume 73 fL (80-97); Mean Platelet Volume 10 um3 (7.4-10.4); Red Blood Count 3.66 10^6/ul (4.0-5.4); Red Cell Distribution Width 21 % (10.5-15); White Blood Count 9.6 10^3/ul (3.5-10.8)
[2017-04-30 06:59] LABS: Comments Flag Yes
[2017-04-30 07:00] LABS: Add Diff/Slide Review? Manual Diff Added
[2017-04-30 07:25] LABS: Neutrophil % 80 % (38-83)
[2017-04-30 07:26] LABS: Microcytosis 1+; Polychromasia 1+
[2017-04-30] MEDS: Nitroglycerin 0.2 MG/HR PATCH* (5 MG) TRANSDERM SCH (08:20)
[2017-04-30] MEDS: guaiFENesin ER TAB 600 MG PO SCH (08:22)
[2017-04-30] MEDS: CMC: Pravastatin (NF) 20 MG TAB PO SCH (08:22)
[2017-04-30] MEDS: amLODIPine TAB* 5 MG PO SCH (08:22)
[2017-04-30] MEDS: Pantoprazole IV* 40 MG IV SCH (08:22)
[2017-04-30] MEDS: Levofloxacin 750 MG IVPREMIX(* 750 MG/150 ML BAG IVPB SCH (11:43)
--- NOTE | 2017-04-30 13:05 | PN ---
Subjective Date of Service: 04/30/17 Interval History: Patient seen and examined at bedside. Denies fever, chills, chest discomfort, N/ V/D, black or dark stools. Pt reports mild shortness of breath with ambulation. Tele: Sinus rhythm, rate 60-80's Family History: Unchanged from Admission Social History: Unchanged from Admission Past Medical History: Unchanged from Admission Objective Active Medications: Albuterol/Ipratropium (Duoneb (Albuterol 2.5 Mg/Ipratropium 0.5 Mg)) 1 neb INH [id number] AWAKE [facility] Amlodipine Besylate (Norvasc Tab*) 5 mg PO DAILY [facility] Guaifenesin (Mucinex*) 600 mg PO BID [facility] Levofloxacin/Dextrose (Levaquin 750 Mg Ivpremix(*)) 750 mg in 150 mls @ 100 mls /hr IVPB Q24H [facility] Nitroglycerin (Nitroglycerin 5 Mg Patch*) 1 patch TRANSDERM DAILY [facility] Pantoprazole Sodium (Protonix Iv*) 40 mg IV BID [facility] Pharmacy Profile Note (Nitro Patch/Oint Remove*) 1 note PATCH OFF 1999 [facility] Pravastatin Sodium (Pravachol (Nf)) 40 mg PO DAILY [facility] Vital Signs 04/29/17 04/29/17 04/29/17 13:40 13:45 14:00 Temperature 99.3 F Pulse Rate 77 78 76 Respiratory 16 22 22 Rate Blood Pressure 143/57 154/59 147/55 (mmHg) O2 Sat by Pulse 95 94 97 Oximetry 04/29/17 04/29/17 04/29/17 14:12 15:09 15:29 Temperature 98.4 F 98.7 F Pulse Rate 77 72 77 Respiratory 16 20 16 Rate Blood Pressure 130/54 133/48 (mmHg) O2 Sat by Pulse 95 95 99 Oximetry 04/29/17 04/29/17 04/29/17 19:24 19:49 20:00 Temperature 99.0 F Pulse Rate 71 69 Respiratory 22 18 18 Rate Blood Pressure 124/47 (mmHg) O2 Sat by Pulse 98 99 Oximetry 04/29/17 04/30/17 04/30/17 23:26 03:23 03:47 Temperature 99.1 F 98.8 F Pulse Rate 65 65 89 Respiratory 16 16 18 Rate Blood Pressure 138/49 142/44 (mmHg) O2 Sat by Pulse 98 98 99 Oximetry 04/30/17 04/30/17 04/30/17 06:48 07:14 08:00 Temperature 99.7 F Pulse Rate 70 Respiratory 16 24 Rate Blood Pressure 131/46 (mmHg) O2 Sat by Pulse 98 98 Oximetry 04/30/17 11:25 Temperature Pulse Rate 80 Respiratory Rate Blood Pressure (mmHg) O2 Sat by Pulse 97 Oximetry Oxygen Devices in Use Now: None Appearance: NAD, sitting up in bed Ears/Nose/Mouth/Throat: Mucous Membranes Moist Respiratory: Symmetrical Chest Expansion and Respiratory Effort, Clear to Auscultation Cardiovascular: NL Sounds; No Murmurs; No JVD, RRR Abdominal: NL Sounds; No Tenderness; No Distention Extremities: No Edema Skin: No Rash or Ulcers Neurological: Alert and Oriented x 3, NL Muscle Strength and Tone Lines/Tubes/Other Access: Clean, Dry and Intact Peripheral IV - site benign Nutrition: Taking PO's Result Diagrams: 04/30/17 06:18 04/29/17 05:00 Additional Lab and Data: . Microbiology and Other Data: Microbiology 04/28/17 23:50 Legionella Urinary Antigen - Final Urine Negative Legionella Streptococcus pneumoniae Ag Screen - Final Negative S. pneumo Antigen Assess/Plan/Problems-Billing Ms. Murcia is a 81 y/o F w/ PMH significant for severe aortic stenosis, CAD, HTN, HLD, hx of gastric cancer who presented to the ED on 04/27/17 w/ the c/o of worsening SOB found to have symptomatic anemia with an elevated troponin. - Patient Problems (1) Upper GI bleed Code(s): K92.2 - GASTROINTESTINAL HEMORRHAGE, UNSPECIFIED SNOMED Code(s): 33995139 Comment: - Appreciate GI input. S/P EGD this AM. - Hb stable which suggests this is chronic. (2) Symptomatic anemia Code(s): D64.9 - ANEMIA, UNSPECIFIED SNOMED Code(s): 059518045 Comment: - Received 2 units of PRBCs 04/27 and HB improved. (3) CHF due to valvular disease Code(s): I50.9 - HEART FAILURE, UNSPECIFIED; I38 - ENDOCARDITIS, VALVE UNSPECIFIED SNOMED Code(s): 365330890 Comment: - Patient has known severe aortic stenosis and may be interested in TAVR. - Diurese carefully. - Echo - abnormal LV diastolic filling, severe aortic stenosis. EF 60-65% - Consider adding a beta chris to increase preload. (4) Elevated troponin Code(s): R74.8 - ABNORMAL LEVELS OF OTHER SERUM ENZYMES SNOMED Code(s): 413603825 Comment: - Most likely secondary to demand ischemia from anemia in the setting of , but could also be from pneumonia as now CXR shows right sided consolidation. (5) Pneumonia Code(s): J18.9 - PNEUMONIA, UNSPECIFIED ORGANISM SNOMED Code(s): 828633449 Comment: - CXR shows now R sided consolidation. - Sputum shows normal emily. - Urine for S. pneumo and Legionella antigens negative. - Continue Levaquin. (6) HLD (hyperlipidemia) Code(s): E78.5 - HYPERLIPIDEMIA, UNSPECIFIED SNOMED Code(s): 79218428 Comment: - Continue statin (7) HTN (hypertension) Code(s): I10 - ESSENTIAL (PRIMARY) HYPERTENSION SNOMED Code(s): 61116125 Comment: - Continue amlodipine. (8) DVT prophylaxis Code(s): VCY8189 - SNOMED Code(s): 587787527 Comment: - No chemical DVT prohylaxis in the setting of a GI bleed - SCDs (9) Full code status Code(s): Z78.9 - OTHER SPECIFIED HEALTH STATUS SNOMED Code(s): 617459793 Status and Disposition: Inpatient. VNS set up for discharge. Stable for discharge to home.
[2017-04-30 13:37] VITALS: BP 125/45
--- NOTE | 2017-05-01 09:09 | DS ---
CC: Dr. Bonifacio Maxwell; Dr. Brown * DISCHARGE SUMMARY: DATE OF ADMISSION: 04/27/17 DATE OF DISCHARGE: 04/30/17 ATTENDING PHYSICIAN: Dr. Denis Garcia * (dictated by Diana Deras NP). PRIMARY CARE PROVIDER: Dr. Bonifacio Maxwell. PRIMARY GRANITE POLISHER APPRENTICE: Dr. Brown. PRIMARY DIAGNOSES: 1. Upper gastrointestinal bleed. 2. Symptomatic anemia. 3. 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 4. Hypertroponinemia, suspect secondary to demand ischemia. 5. Pneumonia. SECONDARY DIAGNOSES: 1. Hyperlipidemia. 2. Hypertension. 3. Severe aortic stenosis. CONSULTATIONS WHILE IN THE HOSPITAL: Dr. Aravind Romano, Dr. Ellyn Ocasio, and Dr. Primo Tang with Gastroenterology. PROCEDURES WHILE IN THE HOSPITAL: Status post EGD with Dr. Primo Tang on 03/07. Impression: Complete upper endoscopy. Normal upper endoscopy. No etiology was seen for her anemia. STUDIES WHILE IN THE HOSPITAL: 1. Chest x-ray on 04/27/17, radiologist impression: Patchy air space disease of the left lung base. Recommend followup until resolution to exclude underlying pulmonary parenchymal pathology. 2. Chest x-ray on 04/28/17. Radiologist impression: Progressive multifocal consolidation of the lungs bilaterally, greater on the right than the left. 3. Transthoracic echocardiogram on 04/28/17. Breeding Manager conclusion: Moderate concentric left ventricular hypertrophy was observed. Global left ventricular wall motion and contractility are within normal limits. The estimated ejection fraction is 60% to 65%. Abnormal left ventricular diastolic filling is observed, consistent with impaired relaxation. The right ventral wall thickness is mildly increased, systolic function is normal. The left aortic valve leaflets are severely thickened with reduced systolic excursion. There is a trace of aortic regurgitation. There is severe aortic stenosis, mean gradient is 66 mmHg. CHARISSE is 0.8 cm2, DI is 0.226 (VTI and V-Max.) MAC, mitral valve sclerosis with moderate mitral regurgitation and mild mitral stenosis. There is trace tricuspid regurgitation. Compared with prior echo of 04/23/16, mean gradient across the AV was 44 mmHg indicating a further progression in , the degree of MR has increased, MS is stable. DISCHARGE MEDICATIONS: New home medications, 1. Levaquin 750 mg oral daily for 4 days to complete a 7-day course. 2. Mucinex 600 mg oral twice daily. Continued home medications, 1. Pravastatin 40 mg oral daily. 2. Hydrochlorothiazide 25 mg oral daily. 3. Vitamin D 1000 units oral daily. 4. Fish oil 1000 mg oral daily. 5. Vitamin B12 at 500 mcg oral daily. 6. Amlodipine 10 mg oral daily. 7. Nitroglycerin 0.2 mg an hour patch, 1 patch transdermal daily. 8. Multivitamin 1 tablet oral daily. 9. Ely 180 mg oral daily. 10. Nitroglycerin 0.4 mg tablets, sublingual every 5 minutes as needed for angina. Medications on hold: 1. Aspirin, the patient has been instructed to hold her aspirin until instructed to resume by Dr. Maxwell or Dr. Brown. HISTORY OF PRESENT ILLNESS/HOSPITAL COURSE: Ms. Murcia is an 81-year-old female with past medical history significant for coronary artery disease, aortic stenosis, hypertension, hyperlipidemia and a history of gastric cancer, who presented to the emergency room with complaints of shortness of breath that had started a few days prior to her presentation. The patient noted that she had difficulty breathing both at rest and with activity. She denied any fever but reported a dry cough. She also had some chest pain that was worse when she was lying flat and drinking water helped that. The chest pain was described as more of a burning sensation. In addition, she felt like she had trouble breathing when lying flat. She reported black coffee-ground like stools for an unknown length of time. The patient reported taking iron and noted that her stools were darker with the iron. She does have a history 2 years ago having a partial resection of the stomach for gastric cancer. She reports poor appetite and has had a significant amount of weight loss and denied any significant weight loss in the past month. She presented to the emergency room for evaluation of her symptoms. While in the emergency room, the patient was found to have a hemoglobin of 6.7, down from her last hemoglobin of 8.3. In addition to that she was found to have troponin of 0.47 and a BNP of 538. Her stools for occult blood was positive and GI was consulted. The patient was placed on a Protonix drip and had orders for 2 units of packed red blood cells. The hospitalist evaluated the patient for admission. While in the hospital, the patient was found to be in acute diastolic heart failure. She received some Lasix. She was eventually stabilized and taken for an EGD that had no significant findings. She had a repeat echo showing increase in her aortic stenosis. It was discussed with the patient, the possibility of having aortic valve replacement. Initially, she was resistant but then agreed to consult on having a TAVR. The patient had her troponins trended, it peaked at 0.58. It was suspected this was secondary to demand ischemia in the setting of anemia with her aortic stenosis but could also have been from a pneumonia as she was found to have right sided consolidation on her chest x-ray. The patient was started on Levaquin for a possible pneumonia. She had a sputum with normal emily, urine antigen for S. pneumoniae and legionella were negative. She received a total of 3 days of IV Levaquin. The patient continued to do well. Her hemoglobin and hematocrit were stable. I suspected that the patient at baseline had anemia, possibly secondary to chronic GI bleed. It was felt that due to the patient's respiratory status and cardiovascular status that she was not a candidate for further sedation for a colonoscopy as they had difficulties maintaining her oxygen saturations in the low 80s during her procedure. The patient stated understanding. Ms. Murcia is stable for discharge to home today. Vital signs are as follows. Temperature 98.5, heart rate 72, respiratory rate 22, O2 sat 97% on room air, blood pressure 125/45. DISCHARGE PLAN: Ms. Murcia will be discharged to home. Activity as tolerated. She has been encouraged to be on a low sodium diet. As far her GI bleed, I have asked her to hold her aspirin for now and resume once instructed to by Dr. Maxwell or Dr. Brown. For the patient's diastolic heart failure , she was not placed on any routine diuretics at this time. She has been asked to check her weights daily and notify Dr. Maxwell or Dr. Brown for weight gain greater than 3 pounds in 24 hours. She no longer has shortness of breath at rest but does have mild shortness of breath with ambulation. For her pneumonia, she has been continued on 4 more days of Levaquin oral daily. She will be continued on her statin for her hyperlipidemia and amlodipine for her hypertension. She has a followup appointment with her primary care provider Dr. Bonifacio Maxwell on 05/04/17 at 3 p.m. with her kineseologist Dr. Brown on 05/20/17 at 11 a.m. to discuss a possible TAVR and to have him help her be referred to a cardiothoracic surgery for the procedure. The patient has also been setup with visiting nurse services. ITEMS TO DISCUSSED AT FOLLOWUP: The patient will need to discuss with Dr. Brown at her followup regarding aortic valve replacement options. Other followup recommendations include considering adding in a beta-chris is needed to increase the patient's preload. It could also be considered in the future when she is recovered from her respiratory illness, doing an outpatient cardiac stress test, if felt necessary. The patient has been asked to return to the emergency room for any increased shortness of breath or chest pain. This is a summarized report of a complex medical history and hospital stay. For further details, please see the entire medical record. TIME SPENT: Time for this discharge was approximately 50 minutes, greater than half of that was spent with the patient and family, discussing discharge plans and instructions. CONDITION ON DISCHARGE: Stable. DIANA DERAS, ADILSON [id number]/[facility] #: [id number] LIZ
== END 2017-04-30 16:25 | disposition home health service (06) | DRG 377 ==
LOC: ED 06:52 → MEDTELE 10:18
PROVIDERS: ADMIT Internal Medicine; ATTEND Internal Medicine
PROC: 30233N1 Transfusion of Nonautologous Red Blood Cells into Peripheral Vein, Percutaneous Approach (ICD-10-PCS; principal; 2017-04-27)
PROC: 0DJ08ZZ Inspection of Upper Intestinal Tract, Via Natural or Artificial Opening Endoscopic (ICD-10-PCS; 2017-04-29)
DX: K92.2 Gastrointestinal hemorrhage, unspecified (principal); J18.9 Pneumonia, unspecified organism; I11.0 Hypertensive heart disease with heart failure; I50.32 Chronic diastolic (congestive) heart failure; I24.8 Other forms of acute ischemic heart disease; I08.3 Combined rheumatic disorders of mitral, aortic and tricuspid valves; M06.9 Rheumatoid arthritis, unspecified; D62 Acute posthemorrhagic anemia; I25.10 Atherosclerotic heart disease of native coronary artery without angina pectoris; E78.5 Hyperlipidemia, unspecified; R74.8 Abnormal levels of other serum enzymes; R06.02 Shortness of breath; M17.0 Bilateral primary osteoarthritis of knee; M19.042 Primary osteoarthritis, left hand; M19.041 Primary osteoarthritis, right hand; R40.2412 Glasgow coma scale score 13-15, at arrival to emergency department; E66.9 Obesity, unspecified; D50.9 Iron deficiency anemia, unspecified; Z90.49 Acquired absence of other specified parts of digestive tract; Z85.028 Personal history of other malignant neoplasm of stomach; Z88.0 Allergy status to penicillin; Z87.891 Personal history of nicotine dependence; Z95.5 Presence of coronary angioplasty implant and graft; Z90.710 Acquired absence of both cervix and uterus; Z83.3 Family history of diabetes mellitus; Z80.9 Family history of malignant neoplasm, unspecified; Z82.5 Family history of asthma and other chronic lower respiratory diseases; Z68.30 Body mass index [BMI] 30.0-30.9, adult
CPT/HCPCS: 36415; 71010; 71020; 80048; 80053; 81003; 82270; 83880; 84484; 85014; 85018; 85025; 85610; 86140; 86850; 86900; 86901; 86922; 87070; 87205; 87899; 93005; 93306; 94640; 94760; A9270-GY; J1940; J2250; J3010; J3480; P9040

== ENCOUNTER → 2017-06-18 08:05 | Day surgery (SDC) | payer MEDICARE ==
[~2017-06-18 08:05] MED LIST: Diazepam TAB(*) 5 MG ONE; Heparin 2 UNITS/ML IVPREMIX* 2,000 ML IV ONE; Heparin(*) 1000 UNIT/ML 10 ML VIAL CATH LAB IV ONE; Iohexol 350 (CONTRAST) 200 ML MDV IV ONE; Lidocaine 1% INJ* 10 MG/ML 30 ML SDV ONE; Midazolam* 1 MG/ML 10 ML VIAL (10 MG) ONE; NS 0.9% 1000 ML* 1,000 ML IV SCH; VERAPAMIL 2.5 MG/ML 4 ML VIAL ONE; diPHENhydraMINE PO* 25 MG ONE; fentaNYL* 50 MCG/ML 2 ML VIAL (100 MCG VIAL) ONE; nitroGLYCERIN DRIP* 25,000 MCG/250 ML BTL ONE
[2017-06-18 10:59] LABS: Hematocrit 31 % (35-47); Hemoglobin 9.6 g/dl (12.0-16.0); Mean Corpuscular HGB Conc 31 g/dl (31-36); Mean Corpuscular Hemoglobin 22 pg (27-31); Mean Corpuscular Volume 72 fL (80-97); Mean Platelet Volume 10 um3 (7.4-10.4); Platelet Count 239 10^3/ul (150-450); Red Blood Count 4.37 10^6/ul (4.0-5.4); Red Cell Distribution Width 21 % (10.5-15); White Blood Count 4.9 10^3/ul (3.5-10.8)
[2017-06-18 11:28] LABS: Monocytes % 13 % (0-13)
[2017-06-18 11:31] LABS: ABS Eosinophils 0.09 10^3/ul (0-0.6); ABS Lymphocytes 1.27 10^3/ul (1.0-4.8); ABS Monocytes 0.63 10^3/ul (0-0.8); ABS Neutrophils 2.89 10^3/ul (1.5-7.7)
[2017-06-18 15:02] VITALS: BP 112/56
--- NOTE | 2017-06-19 01:39 | CATH ---
CC: Dr. Maxwell; Dr. Brown; Dr. Allen; Dr. Ruiz Mccabe CATH REPORT: DATE OF PROCEDURE: 06/18/17 PRIMARY CARE PHYSICIAN: Dr. Maxwell. CLINIC BUSINESS MANAGER: Dr. Brown. STRUCTURAL CLINIC BUSINESS MANAGER: Dr. Allen in [facility]. UROLOGIST: Dr. Ruiz Mccabe at [facility]. PROCEDURES: Right radial artery access, bilateral selective coronary cineangiography, left heart cat heterization, IVUS evaluation RCA, ostium. HISTORY: An 81-year-old woman with remote angioplasty, referred for diagnostic coronary angiography prior to TAVR. She also has a bladder tumor that needs treatment. She has chronic microcytic anemia . PROCEDURE ACCESS: Right radial artery sheath 6-F slender. MEDICATIONS: 1. Subcutaneous lidocaine. 2. IV Versed. 3. IV fentanyl. 4. Heparin 3000 units. 5. Verapamil 3 mg. 6. Nitroglycerin 300 mcg IA. 7. Heparin 2000 units IV. DIAGNOSTIC CATHETER: 5F TIG4 which tended to engage the RCA conus. 5FR 4, 5FL 3.5. During a wire e xchange, the J-wire spontaneously crossed aortic valve into the LV, pullback pressure was therefore r ecorded. Guiding catheter for the IVUS RCA was a 6FLCB using a 14 BMW wire and the 3-Hebrew Phase Focusros s IVUS catheter. After wiring of the RCA, the IVUS catheter was used to perform pullback recording x2 , the second pullback utilized contrast injection to identify exactly ostial location. HEMODYNAMICS: Initial BP 137/65, LV 198/22, AO on pullback 140/47 with a 58 mmHg [id number] aortic valve gradient. IVUS: Distal RCA reference diameter was 5.92 sq mm, MLA at the ostium was 3.58 sq mm for a 40% steno sis. The proximal RCA had mostly symmetrical fibrous plaque, near the ostium there was a calcificati on in 2 quadrants with a moderate stenosis. The stenosis was very short. ANGIOGRAPHY: RCA: The RCA has a 50% to 60% ostial stenosis, incidentally noted is heavy calcificati on of the aortic valve leaflets with marked reduced excursion, as well as calcification of left coron vern system. The RCA is dominant with a moderate PDA followed by 2 moderate posterolaterals. Distal RCA has no significant stenosis. There is a heavy calcification of the aortic root. Left Main: The left main has no stenosis. LAD: The LAD is moderate, extends past the apex, has scattered luminal irregularity but no significa nt stenosis, it supplies a large mid diagonal, which has a 40% proximal stenosis. Circumflex: The circumflex is large, not dominant, has a small ramus branch, which has a 40% to 50% stenosis in its mid portion, this was followed by large marginal without stenosis, the AV groove cont inuation after the marginal has a 75% stenosis before it supplies a small bifurcated posterolateral a nd ends with an atrial branch. Distal AV groove circumflex stenosis subtends a small amount of myoca rdium. There is no angiographic change of the RCA after IVUS. CONCLUSION: 1. Two-vessel coronary disease with mild to moderate ramus stenosis, moderate to severe distal circu mflex stenosis subtending a small area of myocardium, and moderate ostial RCA stenosis, which is insi gnificant by IVUS. 2. Severe aortic stenosis by gradient. 3. Successful right radial artery access. [id number]/[facility] #: [id number]
== END | disposition home or self-care (01) ==
LOC: CHICATH 08:05
PROVIDERS: ATTEND Internal Medicine Cardiovascular Disease
DX: I35.0 Nonrheumatic aortic (valve) stenosis (principal); I25.10 Atherosclerotic heart disease of native coronary artery without angina pectoris; D50.9 Iron deficiency anemia, unspecified; D49.4 Neoplasm of unspecified behavior of bladder; I50.9 Heart failure, unspecified; I10 Essential (primary) hypertension; E78.5 Hyperlipidemia, unspecified; D64.89 Other specified anemias; E11.9 Type 2 diabetes mellitus without complications
CPT/HCPCS: 36415; 80048; 85025; 93458; 99156; 99157; A9270-GY; C1769; C1887; J1644; J2250; J3010

== ENCOUNTER 2018-07-19 12:21 | Observation (INO) | payer MEDICARE ==
--- NOTE | 2018-07-19 13:18 | ED ---
Upper Extremity Pain - HPI Summary HPI Summary: This patient is a 82 year old female presenting to [facility] for bilateral arm numbness and weakness. She states it started in january of 2018 but it is getting worse. She denies neck pain. She has had trouble getting dressed and lifting objects in the house due to the increasing weakness. She has had an aortic replacement but states she has never been told she cannot receive an MRI. She was sent from a rehabilitation center. She was sent there by Dr Maxwell. Nerve study done at that facility showed: There is electrodiagnostic evidence of a diffuse process affecting motor nerve axons on the arms more than the legs. This may represent motor neuron disease, a high cervical lesion, or motor axonopathy - History of Current Complaint Chief Complaint: EDWeakness Stated Complaint: WEAKNESS Time Seen by Provider: 07/19/18 13:06 Hx Obtained From: Patient Mechanism Of Injury: Other - nones Onset/Duration: Still Present, Worse Since Timing: Constant, Lasting Weeks - several months Severity Initially: Mild Severity Currently: Moderate Pain Location: Arm, Hand Associated Signs & Symptoms: Positive: Weakness, Numbness/Tingling - Allergies/Home Medications Allergies/Adverse Reactions: Allergies Allergy/AdvReac Type Severity Reaction Status Date / Time Penicillins Allergy Hives Verified 07/19/18 13:08 Home Medications: Home Medications Aspirin EC TAB* [Ecotrin EC Low Dose 81 MG*] 81 mg PO DAILY 07/19/18 [History Confirmed 07/19/18] Fexofenadine (NF) [Ely 180 (NF)] 180 mg PO DAILY PRN 07/19/18 [History Confirmed 07/19/18] Nitroglycerin TAB 0.4 MG* 0.4 mg SL Q5M PRN 07/19/18 [History Confirmed 07/19/18 ] PMH/Surg Hx/FS Hx/Imm Hx Endocrine/Hematology History: Denies: Hx Diabetes Cardiovascular History: Reports: Hx Coronary Artery Disease - 192 ANGIOPLASTY, Hx Hypertension, Other Cardiovascular Problems/Disorders - "HEART MURMUR" Respiratory History: Reports: Hx Asthma Musculoskeletal History: Reports: Hx Arthritis - KNEES, HANDS, LOW BACK, Hx Rheumatoid Arthritis Denies: Hx Osteoporosis Sensory History: Reports: Hx Contacts or Glasses - GLASSES Denies: Hx Hearing Aid Opthamlomology History: Reports: Hx Contacts or Glasses - GLASSES - Cancer History Hx Chemotherapy: No Hx Radiation Therapy: No - Surgical History Surgery Procedure, Year, and Place: 1991 CORONARY ANGIOPLASTY [place]. 1963 ABD TUMOR ? [place]. 1972 HYSTERECTOMY [facility] Hx Anesthesia Reactions: No - Immunization History Immunizations Up to Date: Yes Infectious Disease History: No Infectious Disease History: Denies: Traveled Outside the [place] in Last 30 Days - Family History Known Family History: Positive: Diabetes - type 2, father, Other - Father: CA and asthma - Social History Alcohol Use: None Substance Use Type: Reports: None Smoking Status (MU): Former Smoker Amount Used/How Often: FEW CIGS. /WEEK MAYBE 10 YRS Have You Smoked in the Last Year: No Review of Systems Negative: Fever Musculoskeletal: Negative - neck pain Positive: Weakness, Numbness All Other Systems Reviewed And Are Negative: Yes Physical Exam - Summary Physical Exam Summary: GENERAL: Patient is a well-developed and nourished F who is lying comfortable in the stretcher. Patient is not in any acute respiratory distress. HEAD AND FACE: Normocephalic EYES: PERRLA, EOMI x 2. EARS: Hearing grossly intact. MOUTH: Oropharynx within normal limits. NECK: Supple, trachea is midline, no adenopathy, no JVD, no carotid bruit. CHEST: Symmetric, no tenderness at palpation LUNGS: Clear to auscultation bilaterally. No wheezing or crackles. CVS: Regular rate and rhythm, S1 and S2 present, no murmurs or gallops appreciated. ABDOMEN: Soft, non-tender. Bowel sounds are normal. No abdominal abnormal pulsations. EXTREMITIES: Full ROM in all major joints, no edema, no cyanosis or clubbing. NEURO: Alert and oriented x 3. Speech is normal and follows commands. There is sensation in the bilateral hands. 2/5 motor in the hands. SKIN: Dry and warm Triage Information Reviewed: Yes Vital Signs On Initial Exam: Initial Vitals Temp Pulse Resp BP Pulse Ox 98 F 66 16 147/89 97 07/19/18 12:35 07/19/18 12:35 07/19/18 12:35 07/19/18 12:35 07/19/18 12:35 Vital Signs Reviewed: Yes Diagnostics - Vital Signs Vital Signs Temp Pulse Resp BP Pulse Ox 07/19/18 12:35 98 F 66 16 147/89 97 - Laboratory Result Diagrams: 07/20/18 06:08 07/20/18 06:08 Lab Statement: Any lab studies that have been ordered have been reviewed, and results considered in the medical decision making process. - EKG 1318 Cardiac Rate: Bradycardia EKG Rhythm: Sinus Bradycardia - at 59 BPM Summary of EKG Findings: nml axis Course/Dx - Course Assessment/Plan: This patient is a 82 year old female presenting to [facility] for bilateral arm numbness and weakness. She states it started in january of 2018 but it is getting worse. She denies neck pain. She has had trouble getting dressed and lifting objects in the house due to the increasing weakness. She has had an aortic replacement but states she has never been told she cannot receive an MRI. She was sent from a rehabilitation center. She was sent there by Dr Maxwell. Nerve study done at that facility showed: There is electrodiagnostic evidence of a diffuse process affecting motor nerve axons on the arms more than the legs. This may represent motor neuron disease, a high cervical lesion, or motor axonopathy. Bloodwork obtained. We discussed the patients case with Dr Martino and she has accepted the patient for admission. She will receive and MRI, neurology is aware of this patient. - Diagnoses Provider Diagnoses: Weakness - Physician Notifications Discussed Care of Patient With: Andriy Hayes Time Discussed With Above Provider: 13:16 Instructed by Provider To: Other - He states she should be admitted and get MRI. He can see her in the morning but if he is needed earlier he will come. 1426: I discussed the case with Dr Martino and she has agreed to admit the patient. Discharge - Sign-Out/Discharge Documenting (check all that apply): Patient Departure - admitted - Discharge Plan Condition: Fair Disposition: ADMITTED TO [facility] - Billing Disposition and Condition Condition: FAIR Disposition: Admitted to [facility] - Attestation Statements Document Initiated by Scribe: Yes Documenting Scribe: Esteban Linares Provider For Whom Scribe is Documenting (Include Credential): Jae Bragg MD Scribe Attestation: Esteban Deal scribed for Jae Bragg MD on 07/20/18 at 1055. Scribe Documentation Reviewed: Yes Provider Attestation: The documentation as recorded by the Esteban tomlinson accurately reflects the service I personally performed and the decisions made by me, Jae Bragg MD Status of Scribe Document: Viewed
[2018-07-19 13:40] LABS: ABS Basophils 0.1 10^3/ul (0-0.2); ABS Eosinophils 0.1 10^3/ul (0-0.6); ABS Lymphocytes 1.5 10^3/ul (1.0-4.8); ABS Monocytes 0.4 10^3/ul (0-0.8); ABS Neutrophils 2.5 10^3/ul (1.5-7.7); ABS Nucleated RBC 0 10^3/ul; Eosinophil % 1.4 %; Hematocrit 38 % (35-47); Lymphocyte % 32.9 %; Mean Corpuscular HGB Conc 32 g/dl (31-36); Mean Corpuscular Hemoglobin 26 pg (27-31); Mean Corpuscular Volume 82 fL (80-97); Mean Platelet Volume 8.9 fL (7.4-10.4); Nucleated Red Blood Cells % 0; Platelet Count 158 10^3/ul (150-450); Red Blood Count 4.57 10^6/ul (4.00-5.40); Red Cell Distribution Width 15 % (10.5-15); White Blood Count 4.5 10^3/ul (3.5-10.8)
[2018-07-19 14:16] LABS: ALT 11 U/L (7-52); AST 17 U/L (13-39); Albumin 3.9 g/dL (3.2-5.2); Albumin/Globulin Ratio 1.3 (1-3); Alkaline Phosphatase 63 U/L (34-104); Anion Gap 8 mmol/L (2-11); Blood Urea Nitrogen 16 mg/dL (6-24); CO2 Carbon Dioxide 27 mmol/L (22-32); Calcium 9.7 mg/dL (8.6-10.3); Chloride 108 mmol/L (101-111); EGFR African American 73.1 (>60); EGFR Non-African American 60.4 (>60); Globulin 3.1 g/dL (2-4); Glucose 101 mg/dL (70-100); Magnesium 2.3 mg/dL (1.9-2.7); Potassium 4.1 mmol/L (3.5-5.0); Sodium 143 mmol/L (135-145)
[2018-07-19] MEDS ORDERED: Cetirizine* 10 MG TAB PO PRN (16:48)
[2018-07-19] MEDS ORDERED: Nitroglycerin TAB 0.4 MG* 0.4 MG TAB SL PRN (16:48)
[2018-07-19 16:49] LABS: C Reactive Protein 2.74 mg/L (<8.01); Creatine Kinase 102 U/L (10-223)
[2018-07-19] MEDS ORDERED: Acetaminophen TAB* 325 MG PO PRN (16:50)
[2018-07-19 17:02] LABS: TSH (Thyroid Stimulating Horm) 0.74 mcIU/mL (0.34-5.60)
[2018-07-19 18:29] LABS: Erythrocyte Sed Rate 18 mm/Hr (0-40)
--- NOTE | 2018-07-19 19:22 | HP ---
CC: Dr. Maxwell; Dr. Brown; Dr. Hayes * HISTORY AND PHYSICAL: DATE OF ADMISSION: 07/19/18 TIME OF EVALUATION: 4:15 p.m. PRIMARY CARE PROVIDER: Dr. Maxwell. KAI WHAKARURUHAU: Dr. Brown. CONSULTING NEUROLOGIST: Dr. Hayes. CHIEF COMPLAINT: Weakness. HISTORY OF PRESENT ILLNESS: Ms. Murcia is an 82-year-old female with a past medical history of gastric cancer, status post partial gastrectomy in 2014 at [facility]; coronary artery disease; aortic stenosis, status post TAVR at [facility] in 2018; hypertension; hyperlipidemia, who presented to the emergency room with complaints of weakness. The patient states that January last year she started to have numbness and weakness on both hands. She was seen by her primary care provider, had some testing done and she states that the results were "negative." She states that her weakness has progressed from her hands to her arms and she was having difficulty especially with fine motor skills like buttoning her clothes and doing other things with her hands. She denies lower extremity weakness. States that she is able to stand up from a chair, but she does have a chairlift in her home, so she has not really walked upstairs. She describes a weight loss of more than 60 pounds "210 pounds prior to her gastric tumor resection and now she is down to 146 pounds." She denies fever, chills, cough, chest pain, palpitations. Today, she saw Dr. Camilo for an EMG and the study was found to be abnormal, suggestive of a high cervical lesion or lower motor neuron disease, so she was sent to the emergency room for further evaluation. The patient denies any dysphagia. PAST MEDICAL HISTORY: 1. Gastric cancer, status post partial gastrectomy in 2014 at [facility]. 2. Coronary artery disease. 3. Hypertension. 4. Hyperlipidemia. 5. Severe aortic stenosis, status post TAVR in 2018 at [facility]. 6. Prior history of iron-deficiency anemia secondary to GI bleed. MEDICATION LIST: 1. Amlodipine 10 mg p.o. daily. 2. Aspirin 81 mg p.o. daily. 3. Cholecalciferol 1000 units p.o. daily. 4. Plavix 75 mg p.o. daily. 5. Vitamin B12 of 500 mcg sublingual b.i.d. 6. Ferrous sulfate 325 mg p.o. b.i.d. 7. Ely 180 mg p.o. daily as needed for allergy. 8. Hydrochlorothiazide 25 mg p.o. daily. 9. Nitroglycerin patch 0.2 mg an hour topical daily. 10. Nitroglycerin 0.4 mg sublingual q.5 minutes p.r.n. chest pain. 11. Fish oil 1 capsule p.o. daily. 12. Pravastatin 40 mg p.o. at bedtime. ALLERGIES: With PENICILLIN, the patient had hives. FAMILY HISTORY: The patient does not recall. SOCIAL HISTORY: The patient has a remote history of tobacco and alcohol use. She quit more than 40 years ago. She is retired from [employer]. Surrogate decision maker is her cousin, Long Hartman, phone number is [phone]. REVIEW OF SYSTEMS: A 14-point review of systems was performed and all the pertinent negative and positive findings are in the HPI. PHYSICAL EXAMINATION GENERAL: The patient is an elderly lady, lying in the ED stretcher, in no acute distress. VITAL SIGNS: Temperature 98.8, heart rate is 60, respiratory rate is 17, oxygen saturation is 100% on room air, blood pressure is 129/59. HEENT: Pupils are equal. Moist mucous membranes. CHEST: Breath sounds present bilaterally with no added sounds. CVS: Normal S1, S2. Regular rate and rhythm. ABDOMEN: Soft, nontender. Bowel sounds are present. EXTREMITIES: No edema. NEURO: The patient is alert and oriented x3. She has significant upper extremity weakness with interosseous muscle atrophy. She can lift both arms against gravity, but not against resistance and she has significant muscle atrophy. I did not see muscle fasciculations on my examination. Although she denies lower extremity weakness on physical examination, she also has significant weakness, mostly proximal weakness. She can lift both legs against gravity, but not against resistance. Her reflexes are normal to diminished in both upper and lower extremities. DIAGNOSTIC STUDIES/LAB DATA: The patient had a CBC that showed WBC of 4.5, hemoglobin of 12, hematocrit of 38, platelets of 158,000 with 55% neutrophils. Chemistry showed a sodium of 143, potassium of 4.1, chloride of 108, bicarb of 27, BUN of 16, creatinine of 0.89, glucose of 181, lactic acid of 0.7, calcium of 9.7, magnesium of 2.3. LFTs are normal. Troponin is 0. Vitamin B12 is greater than 1450, TSH is 0.74. EKG done 07/19/18 at 1:18 p.m., shows sinus bradycardia at 59 beats per minute with no ST-T changes, minimal ST elevation in the anterior leads suggestive of early repolarization, but no acute ischemic changes. No significant change when compared to her prior EKG from April 2017. ASSESSMENT AND PLAN: Ms. Murcia is an 82-year-old female with a past medical history of coronary artery disease; hypertension; hyperlipidemia; aortic stenosis, status post TAVR; gastric cancer, status post partial gastrectomy in 2014, who was sent to the emergency room with complaints of upper and lower extremity weakness for almost 6 months after being found to have an abnormal EMG. 1. Weakness. The report of the EMG is not yet available, but Dr. Camilo suspects the patient may have a high cervical lesion or lower motor neuron disease and she is concerned with the progression of disease. The patient will be admitted as observation to the medical floor to expedite her workup. She will have a MRI of the cervical spine and a Neurology consultation was requested with Dr. Hayes. The patient has had significant progression of her symptoms over the past 6 months and we will try to complete her workup in an expeditious manner. She will have fall precautions. I am going to order a PT and OT consultation, as independent of her diagnosis she may benefit of rehab. I will check an ESR, CRP, PAOLA levels and also folate. The patient has a history of gastric cancer, status post partial gastrectomy and has lost a significant amount of weight since her surgery. I am concerned her symptoms may also be associated with a paraneoplastic syndrome. I am going to check CT of the chest, abdomen and pelvis to look for any evidence of tumor. 2. Coronary artery disease. Appears to be stable at this time. We will continue aspirin, Plavix, statin, and nitroglycerin patch. 3. Hypertension, is controlled. We will continue amlodipine, hydrochlorothiazide. 4. DVT prophylaxis: The patient has a score of 5 on the DVT Prophylaxis Risk Assessment Guide and she will be started on subcutaneous heparin and SCDs. 5. Code status is full. TIME SPENT: Approximately 50 minutes were spent with the patient's interview, medical records review, physical examination to complete this admission, more than half of this time was spent [id number] with the patient and coordination of care. [id number]/[facility] #: [id number] LIZ
[2018-07-19] MEDS: Ferrous Sulfate TAB* 325 MG PO SCH (21:00)
[2018-07-19] MEDS ORDERED: Atorvastatin* 10 MG TAB PO SCH (21:00)
[2018-07-19] MEDS: Cyanocobalamin TAB* 500 MCG PO SCH (21:00)
[2018-07-19] MEDS ORDERED: Iohexol 300* (CONTRAST) 10 ML SDV IV ONE (22:22)
[2018-07-19] MEDS: Heparin VIAL(*) 5000 UNITS/ML VIAL (FIVE THOUSAND) SUBCUT SCH (22:30)
[2018-07-20] MEDS: Heparin VIAL(*) 5000 UNITS/ML VIAL (FIVE THOUSAND) SUBCUT SCH ×2 (06:17→14:23)
[2018-07-20 06:28] LABS: Hematocrit 38 % (35-47); Hemoglobin 11.7 g/dl (12.0-16.0); Mean Corpuscular HGB Conc 31 g/dl (31-36); Mean Corpuscular Hemoglobin 27 pg (27-31); Mean Corpuscular Volume 85 fL (80-97); Mean Platelet Volume 9.1 fL (7.4-10.4); Platelet Count 164 10^3/ul (150-450); Red Blood Count 4.42 10^6/ul (4.00-5.40); Red Cell Distribution Width 15 % (10.5-15); White Blood Count 3.8 10^3/ul (3.5-10.8)
[2018-07-20 06:36] LABS: Anion Gap 9 mmol/L (2-11); CO2 Carbon Dioxide 22 mmol/L (22-32); Calcium 9.4 mg/dL (8.6-10.3); Chloride 108 mmol/L (101-111); Potassium 4.2 mmol/L (3.5-5.0); Sodium 139 mmol/L (135-145)
[2018-07-20 06:42] LABS: BUN/Creatinine Ratio 14.9 (8-20); Blood Urea Nitrogen 10 mg/dL (6-24); EGFR African American 101.5 (>60); EGFR Non-African American 83.9 (>60); Glucose 74 mg/dL (70-100)
[2018-07-20 07:04] LABS: Immature Granulocytes 1 % (0-9); Lymphocytes % 38 %; Monocytes % 6 %; Neutrophil % 52 %
[2018-07-20 07:07] LABS: ABS Neutrophils 2.01 10^3/ul (1.5-7.7)
[2018-07-20 07:09] LABS: ABS Eosinophils 0.114 10^3/ul (0-0.6)
[2018-07-20 07:14] LABS: Folate > 20.00 ng/mL (>3.99)
[2018-07-20] MEDS ORDERED: Clopidogrel TAB* 75 MG PO SCH (09:00)
[2018-07-20] MEDS ORDERED: Aspirin EC TAB* 81 MG TAB.EC PO SCH (09:00)
[2018-07-20] MEDS ORDERED: Nitroglycerin 0.2 MG/HR PATCH* (5 MG) TRANSDERM SCH (09:00)
[2018-07-20] MEDS ORDERED: amLODIPine TAB* 5 MG PO SCH (09:00)
[2018-07-20] MEDS ORDERED: Hydrochlorothiazide TAB* 25 MG PO SCH (09:00)
[2018-07-20] MEDS ORDERED: Cholecalciferol TAB* 1000 UNITS PO SCH (09:00)
[2018-07-20] MEDS: Ferrous Sulfate TAB* 325 MG PO SCH (10:03)
[2018-07-20] MEDS: Cyanocobalamin TAB* 500 MCG PO SCH (10:03)
[2018-07-20 13:31] VITALS: BP 152/57
--- NOTE | 2018-07-20 17:39 | CONS ---
CONSULTATION REPORT: DATE OF CONSULT: 07/20/18 PATIENT OF: Dr. Lou, Dr. Maxwell, and Dr. Brown. HISTORY OF PRESENT ILLNESS: This is an 82-year-old woman, I am asked to evaluate for a 6-month history of progressive arm weakness. She notes that since this past January, she has had numbness and weakness in both arms with difficulty buttoning her clothes and using her hands. She has had some numbness in her feet, but no weakness in her legs and walks independently. She has had some neck pain, but nothing severe, nothing that radiates into her arms. PAST MEDICAL HISTORY: She has a past medical history of gastric cancer, status post partial gastrectomy in 2014. She also has coronary artery disease, hypertension, hyperlipidemia, severe aortic stenosis, status post TAVR at [facility]. She is status post iron deficiency anemia secondary to GI bleed. MEDICATIONS: At home include: 1. Pravastatin 40 mg at bedtime. 2. Nitroglycerin 0.4 q.5 minutes p.r.n. chest pain. 3. Nitroglycerin patch 0.2 mg/hour topically daily. 4. Hydrochlorothiazide 25 mg daily. 5. Ely 180 daily as needed for allergy. 6. Vitamin B12 500 mcg sublingual b.i.d. 7. Plavix 75 mg daily. 8. Cholecalciferol 1000 units daily. 9. Aspirin 81 mg daily. 10. Amlodipine 10 mg daily. ALLERGIES: She is allergic to PENICILLIN. FAMILY HISTORY: Does not remember. SOCIAL HISTORY: She has remote history of tobacco and alcohol use, quitting more than 40 years ago and she is retired from [employer]. REVIEW OF SYSTEMS: Negative in all 14 spheres other than the HPI. There has been no bowel or bladder problems. PHYSICAL EXAM: On exam, temperature 97.6, pulse 61, respirations 18, blood pressure 152/57. She is alert and oriented, with normal speech and comprehension. Cranial nerves II through XII are intact. I did not see any tongue fasciculation. She denies any swallowing difficulties or shortness of breath. No change in voice. No tongue fasciculations. She had full extraocular movements. Strength is 5/5 in her lower extremities. In her hands, she had 4- finger abduction, 3+ APB, 4- first distal dorsal interosseous, deltoids were 4-, biceps were 4-, triceps were 4+, pronator teres 4. Reflexes were trace to 1 in arms and the legs. She was able to stand and take steps. Her gait is wide- based, but this is how she is. She has intrinsic atrophy of her hands. 1 ankle jerks, there were no fasciculations noted. Chest: Clear. Cardiovascular : Regular rate and rhythm. Abdomen: Soft, with positive bowel sounds. DIAGNOSTIC STUDIES/LAB DATA: Her CBC was normal. Sed rate was 18. Normal PTT. Normal CMP. Vitamin B12 greater than 1450, folate greater than 20, TSH 0.74. CPK was 102. Her MRI scan, I reviewed. It did not show any myelopathy. There was multilevel disk disease causing foraminal stenosis most significantly at C5-6, but also at C4- 5 and C3-4, but not in her lower cervical or upper thoracic region. EMG done yesterday by Dr. Alyson Camilo showed to my view, sign of some distal delay of median and ulnar nerves with absent F-wave studies in the arm and with increased polys on the right in every muscle tested with increased insertional activity, which is 1+ fibs with increased activity in cervical paraspinal muscles. 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 I did EMG looking at the nerves of her left leg and sampled her left leg and left arm. 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 IMPRESSION AND PLAN: I discussed with Marleny that she has a complicated case. She does have a cervical disk disease and that could explain her weakness in her biceps, but not her diffuse weakness in her hands for instance and she is reluctant to have the surgery done. I discussed until we sort things out, it is more likely that she has a diffuse process going on affecting her arms more than legs. So, again I think she does have an element of cervical radiculopathy, but not enough to explain everything. I do not think she has motor neuron disease such as ALS since her reflexes are decreased, does not have tongue fasciculation. I think this possibility is less likely. 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 It is possible that she could have a bilateral brachial plexopathy, but it would be odd for it to be getting worse at this point. I think given the complexity of her case, it will be reasonable for her to see the neuromuscular people at [place] in the near future as an outpatient. I have discussed this with her and she is willing to do this. I will be speaking with Dr. Dasha varghese. [id number]/[facility] #: [id number] LIZ
[2018-07-20] MEDS ORDERED: Nitro Patch/OINT Remove TOPICAL SCH (21:00)
--- NOTE | 2018-07-21 16:04 | DS ---
CC: Dr. Maxwell; Dr. Brown; Dr. Hayes * DATE OF ADMISSION: 07/19/2018. DATE OF DISCHARGE: 07/20/2018. 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 SECONDARY DIAGNOSES: 1. Gastric cancer, status post partial gastrectomy in 2014. 2. Coronary artery disease. 3. Hypertension. 4. Hyperlipidemia. 5. Severe aortic stenosis, status post TAVR in 2018. 6. Prior history of iron deficiency anemia secondary to GI bleed. MEDICATIONS: 1. Fish oil one capsule p.o. daily. 2. Ferrous Sulfate 325 mg p.o. b.i.d. 3. Plavix 75 mg p.o. daily. 4. Aspirin 81 mg p.o. daily. 5. Ely 180 mg p.o. daily as needed for allergy symptoms. 6. Vitamin B12 500 mcg sublingual b.i.d. 7. Cholecalciferol 1,000 units p.o. daily. 8. Pravastatin 40 mg p.o. at bedtime. 9. Nitroglycerin 0.4 mg sublingual q.5 minutes prn chest pain. 10. Hydrochlorothiazide 25 mg p.o. daily. 11. Amlodipine 10 mg p.o. daily. 12. Nitroglycerin patch 0.2 mg an hour topical daily. HOSPITAL COURSE: Ms. Murcia is an 82-year-old lady with a past medical history as stated above who presented to the emergency room on July 19 with complaints of weakness. The patient has had progressive weakness of the upper extremities since January 2018 with significant weight loss since her partial gastrectomy in 2014. She had an EMG performed and Dr. Camilo was concerned with the results, so she sent her to the emergency room for further evaluation. For more details about her presentation, I refer you to my history and physical. The patient had a work-up that included an MRI of the cervical spine that showed no acute abnormality, just multilevel uncovertebral and facet hypertrophy with neural foraminal narrowing, moderate to severe right and moderate left neural foraminal narrowing at C4-5, C3-4 and severe at C5-6. With her history of gastric cancer and significant weight loss, the patient also had a CT of the chest, abdomen, and pelvis with IV contrast and it showed no acute findings. The patient was seen in consultation by Neurology and Dr. Hayes's impression was that the patient has a complicated case. She does have cervical disk disease and that could explain her weakness in her biceps, but not the diffuse weakness in her hands, and in any case the patient is reluctant to have surgery done. He felt that it is more likely that the patient has a diffuse process going on affecting her arms more than legs meaning she does have an element of cervical radiculopathy, but not enough to explain all her symptoms. He did not think she has motor neuron disease such as ALS since her reflexes are decreased and she does not have tongue fasciculation. 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 It is possible that she could have a bilateral brachial plexopathy and he felt that given the complexity of her case, the best course of action would be for her to see the neuromuscular team at [facility] in the near future as an outpatient. Dr. Hayes's office will be making the arrangements and the patient will be contacted when her appointment is scheduled. She is medically stable for discharge today. PHYSICAL EXAMINATION: General: The patient is a pleasant, elderly lady, sitting up in bed in no acute distress. Vital Signs: Temperature 97.6, heart rate 61, respiratory rate 18, oxygen saturation 100 percent on room air, blood pressure 152/57. CVS: Normal S1, S2. Regular rate and rhythm with a systolic murmur. Neuro: She is alert and oriented times three. Her strength is diminished on upper and lower extremities, but mostly in the upper extremities, especially her hands with intrinsic atrophy. Reflexes are present and slightly diminished. DIET: Regular diet. ACTIVITY: As tolerated. DISPOSITION: To home. STATUS WHILE IN THE HOSPITAL: Observation. Please keep in mind this is a summarized version of this patient's hospital stay. If you need more information , please feel free to call me at or please obtain the full medical records. TIME SPENT: Approximately 45 minutes were spent to complete this discharge. [id number]/[facility] #: [id number] LIZ
== END 2018-07-20 16:30 | disposition home or self-care (01) ==
LOC: ED 12:21 → MED 16:17
PROVIDERS: ADMIT Internal Medicine; ATTEND Internal Medicine
DX: R53.1 Weakness (principal); Z85.028 Personal history of other malignant neoplasm of stomach; I25.10 Atherosclerotic heart disease of native coronary artery without angina pectoris; Z87.891 Personal history of nicotine dependence; Z95.5 Presence of coronary angioplasty implant and graft; Z79.82 Long term (current) use of aspirin; Z86.79 Personal history of other diseases of the circulatory system
CPT/HCPCS: 36415; 71260; 72141; 74177; 80048; 80053; 82550; 82607; 82746; 83605; 83735; 83880; 84443; 84484; 85025; 85652; 85730; 86038; 86140; 93005; 95885; 95908; 99283; A9270-GY; G0378; G8978-GP-CH; G8979-GP-CH; G8980-GP-CH; G8987-GO-CI; G8988-GO-CI; J1644; Q9967

== ENCOUNTER 2020-12-15 09:58 | Inpatient (IN) ==
[2020-12-15 11:34] LABS: Hematocrit 21 % (35-47); Hemoglobin 6.5 g/dL (12.0-16.0); Mean Corpuscular HGB Conc 31 g/dL (31-36); Mean Corpuscular Hemoglobin 20 pg (27-31); Mean Corpuscular Volume 66 fL (80-97); Mean Platelet Volume 9.9 fL (7.4-10.4); Platelet Count 265 10^3/uL (150-450); Red Blood Count 3.24 10^6 /uL (3.70-4.87); Red Cell Distribution Width 20 % (10-15); White Blood Count 3.9 10^3/uL (3.5-10.8)
[2020-12-15 11:38] LABS: ALT 15 U/L (7-52); Albumin 3.8 g/dL (3.2-5.2); Albumin/Globulin Ratio 1.2 (1-3); Alkaline Phosphatase 61 U/L (35-149); Blood Urea Nitrogen 12 mg/dL (6-24); CO2 Carbon Dioxide 27 mmol/L (22-32); Calcium 9.6 mg/dL (8.6-10.3); Chloride 105 mmol/L (101-111); EGFR African American 83.5 (>60); Globulin 3.3 g/dL (2-4); Glucose 99 mg/dL (70-100); Sodium 137 mmol/L (135-145); Total Protein 7.1 g/dL (6.4-8.9)
[2020-12-15 11:45] LABS: Anion Gap 5 mmol/L (2-11)
[2020-12-15 12:11] LABS: Burr Cells 2+; Microcytosis 2+; Polychromasia 1+; Schistocytes 1+; Spherocytes 2+
[2020-12-15 12:12] LABS: Tear Drop Cells 2+
[2020-12-15 12:17] LABS: ABS Neutrophils 2.5 10^3/ul (1.5-7.7)
[2020-12-15 12:18] LABS: ABS Eosinophils 0.2 10^3/ul (0-0.6)
[2020-12-15] MEDS ORDERED: Al Hydrox/Mg Hydrox/Simet LIQ 30 ML UDC PO PRN (12:20)
[2020-12-15 13:12] LABS: C Reactive Protein 2.49 mg/L (<8.01)
[2020-12-15 13:23] LABS: Troponin I 0.01 ng/mL (<0.03)
[2020-12-15 13:49] LABS: Magnesium 2.3 mg/dL (1.9-2.7); Potassium Redraw 4.2 mmol/L (3.5-5.0)
[2020-12-15] MEDS: Pantoprazole VIAL 40 MG VIAL IV SCH (13:58)
[2020-12-15 20:13] LABS: Hematocrit 27 % (35-47); Hemoglobin 8.4 g/dL (12.0-16.0)
[2020-12-16 06:01] LABS: ABS Basophils 0.1 10^3/ul (0-0.2); ABS Eosinophils 0.1 10^3/ul (0-0.6); ABS Lymphocytes 0.8 10^3/ul (1.0-4.8); ABS Monocytes 0.7 10^3/ul (0-0.8); ABS Neutrophils 2.8 10^3/ul (1.5-7.7); Eosinophil % 2.9 %; Hematocrit 25 % (35-47); Lymphocyte % 18.3 %; Mean Corpuscular HGB Conc 32 g/dL (31-36); Mean Corpuscular Hemoglobin 22 pg (27-31); Mean Corpuscular Volume 71 fL (80-97); Mean Platelet Volume 8.6 fL (7.4-10.4); Nucleated Red Blood Cells % 0.1; Platelet Count 169 10^3/uL (150-450); Red Blood Count 3.57 10^6 /uL (3.70-4.87); Red Cell Distribution Width 24 % (10-15); White Blood Count 4.6 10^3/uL (3.5-10.8)
[2020-12-16 06:10] LABS: Calcium 8.9 mg/dL (8.6-10.3); EGFR African American 102.7 (>60); EGFR Non-African American 84.9 (>60); Potassium 3.7 mmol/L (3.5-5.0)
[2020-12-16] MEDS ORDERED: Potassium Chlor 20 meq TAB.ER PO ONE (08:22)
[2020-12-16 10:43] LABS: Magnesium 2.1 mg/dL (1.9-2.7)
[2020-12-16] MEDS: Pantoprazole VIAL 40 MG VIAL IV SCH ×2 (15:39→21:11)
[2020-12-16 17:47] LABS: Hematocrit 28 % (35-47); Hemoglobin 8.5 g/dL (12.0-16.0)
[2020-12-17 06:13] LABS: Hematocrit 27 % (35-47); Hemoglobin 8.2 g/dL (12.0-16.0); Mean Corpuscular HGB Conc 31 g/dL (31-36); Mean Corpuscular Hemoglobin 22 pg (27-31); Mean Corpuscular Volume 72 fL (80-97); Mean Platelet Volume 8.9 fL (7.4-10.4); Platelet Count 169 10^3/uL (150-450); Red Blood Count 3.69 10^6 /uL (3.70-4.87); Red Cell Distribution Width 24 % (10-15)
[2020-12-17 07:32] LABS: ABS Eosinophils 0.2 10^3/ul (0-0.6); ABS Neutrophils 2.4 10^3/ul (1.5-7.7)
[2020-12-17] MEDS: Pantoprazole VIAL 40 MG VIAL IV SCH (09:51)
[2020-12-17] MEDS ORDERED: Ferric Gluconate IV 125 MG in NS 0.9% 100 ml BAG 100 ML IVPB ONE (17:00)
[2020-12-17] MEDS ORDERED: Senna TAB 8.6 mg TAB PO PRN (18:19)
[2020-12-17] MEDS ORDERED: Pravastatin 40 mg TAB (NF) PO SCH (21:00)
[2020-12-18 06:55] LABS: Hematocrit 26 % (35-47); Hemoglobin 8.1 g/dL (12.0-16.0)
[2020-12-18 08:15] LABS: % Iron Saturation 48 % (15-55); Iron 155 ug/dL (50-212); Total Iron Binding Capacity 325 mcg/dL (250-450); Transferrin 232 mg/dL (203-362); Unsaturated Iron Binding 170 ug/dL
[2020-12-18 08:36] LABS: Ferritin 36.5 ng/mL (11-307)
[2020-12-18 08:39] LABS: Folate > 20.00 ng/mL (5.90-24.80)
[2020-12-18 08:40] LABS: Vitamin B12 968 pg/mL (180-914)
[2020-12-18] MEDS ORDERED: Nitroglycerin 0.2 mg/hr PATCH (5 mg) TRANSDERM SCH (09:00)
[2020-12-18] MEDS ORDERED: Ferric Gluconate IV 125 MG in NS 0.9% 100 ml BAG 100 ML IVPB ONE (10:00)
[2020-12-18 15:21] VITALS: BP 127/51
[2020-12-18] MEDS ORDERED: Nitro Patch/OINT Remove PATCH PATCH OFF SCH (21:00)
== END 2020-12-18 14:55 | disposition home or self-care (01) | DRG 812 ==
LOC: ED 09:58 → MEDTELE 13:43
PROVIDERS: ADMIT Pediatrics; ATTEND Hospitalist